=== PATIENT | female | born 1985 | race Asian ===

== ENCOUNTER 2022-08-26 16:31 | Outpatient (CLI) | payer OTHER, SELFPAY ==
[2022-08-26 17:39] LABS: Beta HCG Quantitative 2.95 mIU/ML
== END 2022-08-26 16:32 | disposition home or self-care (01) ==
LOC: ANHLAB 16:39
PROVIDERS: Visit Provider Obstetrics & Gynecology
DX: O20.0 Threatened abortion (principal)
CPT/HCPCS: 36415; 84702; 85461; 86850; 86900; 86901

== ENCOUNTER 2024-04-19 17:02 | Inpatient (IN) | payer OTHER, SELFPAY ==
--- OUTSIDE RECORDS SUMMARY | 2024-04-19 17:13 | XMS_ITS | Referral Summary ---
Author Organization [facility] Address [address] [place] [address] Care Team Providers Care Agriculture Specialist Name Role Phone Unavailable Primary Care Provider Unavailabl e Source Comments [facility] [employer],non-owned Affiliates and Associated Physician Practices is amultiple site organization consisting of ambulatory clinics and hospital sitesin [place], [place], [place] and [place]. This disclosure is being madepursuant to the Care Everywhere program and may not contain all information available regarding this patient. Last updated 17.[facility] [employer] Allergies No known active allergies Medications * Be aware that medications may not be up to date on this document. Alwaysverify current medications with the patient. Medication Sig Dispensed Refills Start Date End Date Status Vit-DSS-Fe Fum-FA ( vitamin with iron) tablet Take 1 (one) tablet by mouth once daily Active aspirin (Aspirin) 81 MG chew tablet Take 1 (one) tablet by mouth once daily Active levothyroxine (Synthroid) 75 MCG tablet Take 1 (one) tablet by mouth daily before breakfast Active Active Problems Problem Noted Date Diagnosed Date Abnormal genetic test during Overview (01/07/2024): NIPT showed increased risk for XYY Patient had genetic counseling. PPV for XYY at her age is 30-50% Patient plans for testing, declined diagnostic testing in at this time. 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 However, images are not diagnostic at this time. Discussed finding with patient. She would like to defer consultation with pediatric orthopaedics until there is either an ultrasound-confirmed diagnosis or a diagnosis. PLAN: Follow up US in 4 weeks, after this it would be unlikely to obtain optimal images of the feet with advancing gestational age. Estimated Date of Delivery Comme nts Yes 04/23/2024 Based on last me nstrual period of 07/18/2023 Social History Tobacco Use Types Packs/Day Years Used Date Smoking Tobacco: Never Smokeless Tobacco: Never Tobacco Cessation:Counseling Given: Not Answered Alcohol Use Standard Drinks/Week Comments Not Currently 0 (1 standard drink = 0.6 oz pur e alcohol) Estimated Date of Delivery Comme nts Yes 04/23/2024 Based on last me nstrual period of 07/18/2023 Sex and Gender Information Value Date Recorded Sex Assigned at Not on file Gender Identity Not on file Sexual Orientation Not on file Last Filed Vital Signs Vital Sign Reading Time Taken Comments Blood Pressure 131/70 01/07/2024 3:24 PM CDT Pulse 93 01/07/2024 3:24 PM CDT Temperature - - Respiratory Rate - - Oxygen Saturation - - Inhaled Oxygen Concentration - - Weight 83 kg (183 lb) 01/07/2024 3:24 PM CDT Height - - Body Mass Index - - Plan of Treatment Not on file
--- OUTSIDE RECORDS SUMMARY | 2024-04-19 17:13 | XMS_ITS | Continuity of Care Document ---
Author Organization [facility] [place] Address [address] [place] [address] Assessment No assessment recorded. Plan of Treatment Reminders Order Date Submit Date Provider Last Modified By Organization Details Last Modified Time Details Appointments INDUCTION 2024 05:00P Berto TRAN MD Not available Not available Not available Lab None recorded. Referral None recorded. Procedures None recorded. Surgeries None recorded. Imaging None recorded. Medication Orders None recorded. Patient TargetsNo targets recorded. Patient InstructionsNo instructions recorded. Reason for Referral None Reported. Results Created Date Observation Date Name Description Value Unit Range Abnormal Flag Note LastModifiedBy Organization Detail LastModifiedTime 10/15/19 24 10/15/2023 US, obste tric, nucha l trans lucen cy No observ ation record ed. [email or web address] [place] [address], [place], [address], 10/15/2023 16:47:21 10/15/19 24 10/15/2023 US, obste tric, nucha l trans lucen cy No observ ation record ed. [email or web address] [address], [place], [address], 10/15/2023 22:47:24 11/04/19 24 11/04/2023 US, obste tric No observ ation record ed. [facility] [address], [place], [address], 11/05/2023 12:26:33 11/04/19 24 11/04/2023 US, obste tric No observ ation record ed. [email or web address] [facility] [address] [place] [address], [address], 11/05/2023 12:25:06 11/04/19 24 11/04/2023 US, obste tric, follo w-up No observ ation record ed. [email or web address] [facility] [address] [place] [address], [address], 11/06/2023 15:07:04 12/05/19 24 12/05/2023 US, obste tric, follo w-up No observ ation record ed. [email or web address] [facility] [address], [address], 12/08/2023 11:16:33 12/05/19 24 12/05/2023 US, obste tric, follo w-up No observ ation record ed. [email or web address] [place] [address], [place], [address], 12/08/2023 10:21:50 12/08/19 24 11/04/2023 US, obste tric, follo w-up No observ ation record ed. [email or web address] [place] [address], [place], [address], 12/24/2023 12:00:13 01/07/20 24 01/07/2024 US, obste tric, follo w-up No observ ation record ed. [email or web address] [place] [address], [place], [address], 01/10/2024 18:05:02 01/07/20 24 01/07/2024 US, obste tric, follo w-up No observ ation record ed. [email or web address] [facility] [address], [address], 01/08/2024 10:03:09 10/25/20 24 01/07/2024 US, obste tric, follo w-up No observ ation record ed. [email or web address] [facility] [address], [place], [address], 01/09/2024 11:01:05 01/09/20 24 01/07/2024 US, obste tric, follo w-up No observ ation record ed. [email or web address] [facility] [address], [place], [address], 01/09/2024 11:01:10 02/10/20 24 02/10/2024 US, obste tric, follo w-up No observ ation record ed. [email or web address] [address], [place], [address], 02/16/2024 14:30:34 02/10/20 24 02/10/2024 US, obste tric, follo w-up No observ ation record ed. [email or web address] [place] [address], [place], [address], 02/10/2024 17:14:35 03/05/20 24 03/05/2024 imagi ng/di agnos tic resul t No observ ation record ed. [place] [id number] [facility] [address], [place], [address], 03/16/2024 10:58:14 03/05/20 24 03/05/2024 non-s tress test No observ ation record ed. [place] [id number] [facility] [address], [place], [address], 03/16/2024 11:44:17 03/15/20 24 03/15/2024 US, obste tric, follo w-up No observ ation record ed. [email or web address] [place] [address], [place], [address], 03/15/2024 17:25:22 03/15/20 24 03/15/2024 US, obste tric, follo w-up No observ ation record ed. [email or web address] [address], [place], [address], 03/15/2024 21:49:06 03/15/20 24 03/15/2024 non-s tress test No observ ation record ed. [email or web address] [place] [address], [place], [address], 03/15/2024 21:27:37 03/23/19 25 03/15/2024 non-s tress test No observ ation record ed. [email or web address] [place] [address], [place], [address], 03/23/2024 11:31:21 03/24/19 25 03/24/2024 US, obste tric, bioph ysica l profi le No observ ation record ed. [email or web address] [place] [address], [place], [address], 03/24/2024 17:53:30 03/25/19 25 03/24/2024 US, obste tric, bioph ysica l profi le No observ ation record ed. [email or web address] [address], [place], [address], 03/25/2024 16:18:01 03/26/19 25 03/24/2024 non-s tress test No observ ation record ed. [email or web address] [place] [address], [place], [address], 03/26/2024 17:21:36 03/26/19 25 03/24/2024 non-s tress test No observ ation record ed. [email or web address] Not Available 03/26 17:25:25 03/30/19 25 03/30/2024 US, obste tric, bioph ysica l profi le + non-s tress test No observ ation record ed. [email or web address] [place] [address], [place], [address], 03/30/2024 18:17:31 03/30/19 25 03/30/2024 US, obste tric, bioph ysica l profi le + non-s tress test No observ ation record ed. [email or web address] [address], [place], [address], 03/30/2024 22:41:49 03/30/19 25 03/30/2024 non-s tress test No observ ation record ed. [email or web address] [place] [address], [place], [address], 03/30/2024 17:49:15 04/06/19 25 04/06/2024 US, obste tric, bioph ysica l profi le + non-s tress test No observ ation record ed. [email or web address] [place] [address], [place], [address], 04/06/2024 17:43:05 04/06/19 25 04/06/2024 US, obste tric, follo w-up No observ ation record ed. [address], [place], [address], 04/07/2024 09:23:28 04/06/19 25 04/06/2024 non-s tress test No observ ation record ed. [email or web address] [place] [address], [place], [address], 04/06/2024 17:46:49 04/13/19 25 04/13/2024 US, obste tric, follo w-up No observ ation record ed. [email or web address] [place] [address], [place], [address], 04/13/2024 17:30:39 04/13/1904/13/2024 US, obste tric, follo w-up No observ ation record ed. [email or web address] [address], [place], [address], 04/14/2024 23:16:54 04/13/1904/13/2024 non-s tress test No observ ation record ed. [email or web address] [place] [address], [place], [address], 04/13/2024 17:04:27 Result Notes None recorded. Problems Name Problem SNOMED Code Status Onset Date Resolution Date Notes Provider Name and Address Organization Details Recorded Time 89083698 Active 2023 Alicia montez, [facility] 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 4 16:27:31 Hypothyro idism 25988283 Active Currently on 75mcg Maureen montez, [facility] 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 17:01:25 Problem Notes None recorded. Procedures Surgical History Date Name Laterality Status Provider Name and Address Organization Details Recorded Time 10/03/19 24 Date of Last Pap Smear completed [facility] 10/03/2023 12:52:26 04/17/19 24 intrauterine artificial insemination completed [facility] 10/03/2023 12:54:23 03/17/19 08 operation on oral cavity completed [facility] 10/03/2023 12:54:57 Imaging Results None recorded. Procedure Notes None recorded. Medical Equipment None Reported. Allergies No known drug allergies Medications Name Sig Start Date Stop Date Status Note LastModified by Organization Details LastModified Time Lantus U-100 Insulin 100 unit/mL subcutaneou s solution Inject 5 units every day by subcutane ous route at bedtime, for until delivery. 2023 active Not Available Not Available Not Avai lable levothyroxi ne 25 mcg tablet TAKE 1 TABLET BY MOUTH ONCE DAILY DIRECTED 09/18 completed Not Available Not Available Not Available levothyroxi ne 75 mcg tablet Take 1 tablet every day by oral route. active Not Available Not Available No t Available levothyroxi ne 50 mcg tablet TAKE 1 TABLET BY MOUTH ONCE DAILY DIRECTED 09/18 completed Not Available Not Available Not Available progesteron e micronized 200 mg capsule TAKE 1 CAPSULE BY MOUTH TWO TIMES DAILY WHEN INSTRUCTE D 10/02 completed Not Available Not Available Not Available letrozole 2.5 mg tablet TAKE 2 TABLETS BY MOUTH ONCE DAILY DIRECTED. DO NOT START UNTIL INSTRUCTE D active Not Available Not Available No t Available Ovidrel 250 mcg/0.5 mL subcutaneou s syringe active Not Available Not Available No t Available Levothroid active Not Available Not Av ailable Not Available active Not Available Not Avai lable Not Available Baby Aspirin active Not Available Not Available Not Available insulin syringe U-100 with needle 0.3 mL 31 gauge x 15/64 active Not Available Not Available Not Available OneTouch Delica Plus Lancet 33 gauge active Not Available Not Available Not Available Vitals None Recorded Social History Question Answer Notes LastModified by Organizat ion Details LastModified Time Tobacco Smoking Status Never Smoker Nayely montez [facility] 05/18/2022 12:25:52 Do You Have An Advance Directive? No Information n ot available 04/13/2021 What Is Your Level Of Alcohol Consumption? None Information not available 04/13/2021 If You Are , What Was Your Level Of Alcohol Consumption Prior To ? Occasional Information not available 10/07/2023 Are You Blind Or Do You Have Difficulty Seeing? No Information n ot available 04/13/2021 What Is Your Level Of Caffeine Consumption? Occasional Information not available 04/13/2021 How Much Tobacco Do You Chew? None Information not available 04/13/2021 In The 14 Days Before Symptom Onset, Have You Had Close Contact With A Laboratory-confirm ed COVID-19 While That Case Was Ill? No Information n ot available 04/13/2021 In The 14 Days Before Symptom Onset, Have You Had Close Contact With A Person Who Is Under Investigation For COVID-19 While That Person Was Ill? No Information not available 04/13/2021 Have You Been To An Area Known To Be High Risk For COVID-19? No Information not available 04/13/2021 Are You Currently Employed? No [email or web address] Information not available 03/30/2024 Are You Deaf Or Do You Have Serious Difficulty Hearing? No Information not available 04/13/2021 What Type Of Diet Are You Following? REGULAR Information n ot available 04/13/2021 What Is The Highest Grade Or Level Of School You Have Completed Or The Highest Degree You Have Received? [id number] Information not available 04/13/2021 What Is Your Occupation? Student Information not available 04/13/2021 Are There Any Guns Present In Your Home? No Information not available 04/13/2021 Do You Use Protection During Sex? No Information not available 04/13/2021 Do You Use Your Seat Belt Or Car Seat Routinely? Yes Information not available 04/13/2021 Are You Sexually Active? Yes [email or web address] Information not available 03/30/2024 Do You Have Smoke And Carbon Monoxide Detectors In Your Home? Yes Information not available 04/13/2021 How Much Tobacco Do You Smoke? No Information not available 04/13/2021 Do You Feel Stressed (tense, Restless, Nervous, Or Anxious, Or Unable To Sleep At Night)? [id number] Information not available 04/13/2021 Do You Use Any Illicit Or Recreational Drugs? No Information not available 04/13/2021 Do You Use Sunscreen Routinely? No Information not available 04/13/2021 Has Tobacco Cessation Counseling Been Provided? No [email or web address] Information not available 03/30/2024 Have You Used IV Drugs? No Information not available 04/13/2021 Do You Or Have You Ever Used Any Other Forms Of Tobacco Or Nicotine? No [email or web address] Information not available 03/30/2024 Sex: Unknown Functional Status Question Answer Note LastModified by Organizat ion Details LastModified Time Do you have difficulty walking or climbing stairs? No Information not available 05/18/2022 Are you able to walk? YESWOREST Information not available 04/13/2021 Are you able to care for yourself? Yes Information not available 05/18/2022 Do you have difficulty dressing or bathing? No Information not available 05/18/2022 What is your exercise level? Occasional Information not available 04/13/2021 Mental Status None recorded. Family History Relationship Description Onset Age of this Age Resolved Age Notes LastModified by Organization Details LastModified Time Father Hypertensive disorder Not available 2021 13:03:17 Father Myocardial infarction Not available 04/13 13:03:17 Father Heart disease Not available 2021 13:03:17 Medical History Condition Response Allergies (Food, seasonal, environmental ) N Other N Drug/Latex Allergies/Reactions N Blood Transfusion N Breast Cancer N Dermatologic Disorders N Lung Disease N Defects or Inherited Disease N Breast Problem N Gestational Diabetes N Hematologic disorders N Anesthesia Complications N History of STI N Deep Vein Thrombosis N Polycystic ovary syndrome N Anxiety Disorder N Autoimmune disease N Arthritis N Polyps N Infertility Y Acid Reflux (GERD) N History of abnormal pap N Cancer N Varicosities N Stroke N Neurologic/Epilepsy N Endometriosis N High Cholesterol N Fibromyalgia N Headaches N Kidney Disease N Heart Problems N Thyroid Problems Y Kidney or Bladder Problems N GI Problems N Eating Disorder N Anemia N Art (IVF or FET) Y Psychiatric Illness N Ovarian Cancer N Diabetes N Pulmonary (TB, Asthma) N Hepatitis/Liver Disease N No Past Medical History Y Eczema N Urinary Tract Infection N Abuse/Domestic Violence N Asthma N Trauma/Violence N Depression/ depression N Heart Disease N Pre-Eclampsia N Hypertension N Osteoporosis N Thrombophilias N Gynecological History Statement/Question Response Abnormal Pap N Date of Last Mammogram Flow Moderate Date of LMP 07/18/2023 N On BCP's at Conception? N STIs/STDs N Was last menstrual period normal Y HPV Vaccine N Duration of Flow (days) 7 Current Control Method Date of control 10/15/2017 Are cycles usually normal N Frequency of Cycle (Q days) 28 Sexually Active? Y None Menses Monthly N Date of DEXA bone scan Age of first menstrual cycle 14 Date of Last Pap Smear 10/03/2023 Sexual Problems? N LMP Approximate N Obstetrics History GPAL:G 3 P 0 0 2 0 Type Value Spontaneous 2 Living 0 Total 3 Past Encounters Encounter ID Performer Location Encounter Start Date Encounter Closed Date Diagnosis/Indication Diagnosis SNOMED-CT Code Diagnosis ICD10 Code Diagnosis Note [id number] Lizzy Woods [place] [address],[facility] [place] [address] 03/24/2024 15:28:11 03/27/2024 09:18:34 Gestational diabetes mellitus 38768533 O24.414 [id number] Makenzie Milan brandon [place] [address],[facility] [place] [address] 03/24/2024 15:29:31 03/24/2024 17:52:47 74410971 Z33.1 Gestationa l diabetes mellitus 47712223 O24.419 [id number] AYDIN TRAN MD [place] [address],[facility] [address] 03/24/2024 15:36:18 03/26/2024 01:41:11 Gestational diabetes mellitus class A2 88289444 O24.414 Gestation period, 35 weeks 51771089 Z3A.35 Advanced m aternal age 708179628 O09.522 Hypothyroidism 14789113 E03.9 - TSH stable, will continue synthroid 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, declined amniocente sis [id number] Ally [facility] [address],[place] [address] 03/30/2024 15:55:13 03/30/2024 16:46:31 Gestational diabetes mellitus 18791569 O24.414 O09.523 Z3A.36 [id number] [facility] [address],[place] [address] 03/30/2024 15:55:33 03/31/2024 10:45:11 Gestational diabetes mellitus 75066532 O24.419 [id number] AYDIN TRAN MD [place] [address],[place] [address] 03/30/2024 15:55:53 03/30/2024 17:41:49 Gestational diabetes mellitus class A2 97855467 O24.414 - fasting well controlled on 7u lantus qHS; two PP elevated- continue current regimen Hypothyroidism 59247394 E03.9 - TSH stable, will continue synthroid Anomaly of sex chromosome 22185930 Q99.8 - 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 [address],[place] [address] 04/06/2024 15:56:54 04/06/2024 16:49:31 Gestational diabetes mellitus 45844127 O24.414 O09.523 Z3A.37 [id number] [facility] [address],[place] [address] 04/06/2024 15:57:18 04/07/2024 10:24:20 Gestational diabetes mellitus 75343230 O24.419 [id number] AYDIN TRAN MD [place] [address],[place] [address] 04/06/2024 15:57:42 04/06/2024 17:41:19 Anomaly of sex chromosome 69168482 Q99.8 - XXY on NIPT, declined amniocente sis Gestationa l diabetes mellitus class A2 63275888 O24.414 - fasting well controlled on 7u lantus qHS; two PP elevated- continue current regimen Advanced m aternal age 270351493 O09.522 Hypothyroidism 55656860 E03.9 - TSH stable, will continue synthroid Gestation period, 37 weeks 89231685 Z3A.37 [id number] Ally Simpson [place] [address],[place] [address] 04/13/2024 15:55:48 04/13/2024 16:38:05 Gestational diabetes mellitus 43258618 O24.414 O09.523 O99.283 Z3A.38 [id number] Chastity Shetty [place] [address],[place] [address] 04/13/2024 15:57:50 04/13/2024 17:06:50 Gestational diabetes mellitus 73740169 O24.419 [id number] AYDIN TRAN MD [place] [address],[place] [address] 04/13/2024 15:58:38 04/13/2024 18:03:46 Hypothyroidism in 007194815 E03.9 - TSH wnl Anomaly of sex chromosome 22420740 Q99.8 - XXY on NIPT, declined amniocente sis Gestationa l diabetes mellitus class A2 89119108 O24.414 - continue current regimen Advanced m aternal age 063972298 O09.522 Gestation period, 38 weeks 48010993 Z3A.38 [id number] AYDIN TRAN MD [place] [address],[place] [address] 04/19/2024 10:35:25 04/19/2024 16:25:19 Health Concerns Section Related Observation LastModified by Organization Detai ls LastModified Time None Recorded Concern Status LastModified by Organization Details LastModified Time None Recorded Payers Encounter Date Sequence Insurance Name Policy Number Policy Linda Covered Member ID Linda Member ID Guarantor Name 04/19/2024 1 [facility] [id number] Dayne Doan [id number] Dayne Doan OBGyn Episode Ob Episode Information Episode Created Date Number of Fetuses Patient Bloodtype Patient rh Status Prepregnancy Weight lbs Domestic Partner Domestic Partner Phone Father Name Notch 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 Operator Status 10/15/19 24 1 O Positive 164 OPEN Fetus Data First Name Last Name Admitted to NICU Weight (g) Sex Living Outcome Pediatric Complications Fetus ID Race Codes Race Delivery Type [id number] Problems Problem Notes 11/04/23 8:15am u/s and raul ic counseling, 01/06 230p u/s only, 02/02/24 730a u/s only Problem Name Start Date End Date Resolution Snomed Code Not e Gestational diabetes mellitus 02/02/2024 46726822 BS QID, growth u/ Lantus 7u @ night , antental testing scheduled to start 34wks pt decline to start week of 03/01 Anomaly of sex chromosome 97483966 XYY on NIPT, MF M referral sent Advanced maternal age 043603540 bASA Hypothyroidism 46925343 Curre ntly on 75mcg Frank Calculation Initial Frank Date Initial Exam Date Initial Exam Provider Initial Ultrasound Date Last Menstrual Period Date Ultra Sound Weeks Gestation 04/23/2024 10/15/2023 10/03/2023 07/18/2023 11 Eighteen To Twenty Week Frank Update Ultra Sound Date Fundal Height At Umbil Quickening Date Ultra Sound Latest Weeks Gestation Final Frank Confirmed By Final Frank Confirmed Date Final Frank Date Ultra Sound Latest Days Gestation 0 10/15/2023 04/23/19 25 0 Pre-adrianne Flowsheet Flowsheet Date 10/15/2023 Perdue Score Blood Edema Fundus Height Fundus Units Glucose Ketones Leukocytes Nitrite Labor Signs Protein Cervic Dilation Cervic Effacement Cervic Station Type Weight in lbs Pre/Post Dialysis Refused Weight 165.636046399301 BP Diastolic BP Location Tested BP Systolic BP Type 72 108 Fetus Heart Rate Present A 170 Fetus Movement Comments Patient presents to [facility] care. Her has been thus far uncomplicated. She does have a history of hemorrhoids and constipation which have been improved. NT/NB wnl today. 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 Recommend diagnostic testing with [facility] vs amniocentesis, referral to [facility] sent. Patient voices understanding, appropriately tearful. Other new OB labs wnl aside from previously noted elevated TSH. Wrong Hep B lab sent in error, will repeat today with TSH. RTC 4 weeks for routine care. Flowsheet Date 11/14/2023 Perdue Score Blood Edema Fundus Height Fundus Units Glucose Ketones Leukocytes Nitrite Labor Signs Protein Cervic Dilation Cervic Effacement Cervic Station Type Weight in lbs Pre/Post Dialysis Refused Weight 167.151337794005 BP Diastolic BP Location Tested BP Systolic BP Type 84 123 Fetus Heart Rate Present A 150 Fetus Movement Comments Doing well, no cramping or b leeding. No movement yet. Saw [facility] for concern for Holman syndrome, declines further diagnostic testing in . Will plan for cord blood collection at delivery. Anatomy US at [facility]. Taking bASA for AMA. TSH wnl, continue current levothyroxine. Discussed childbirth and classes at [facility]. RTC 4 weeks. Flowsheet Date 12/19/2023 Perdue Score Blood Edema Fundus Height Fundus Units Glucose Ketones Leukocytes Nitrite Labor Signs Protein Cervic Dilation Cervic Effacement Cervic Station neg none none trace Type Weight in lbs Pre/Post Dialysis Refused 178.739007726824 BP Diastolic BP Location Tested BP Systolic BP Type 80 L arm 125 sitting Fetus Heart Rate Present A 145 Fetus Movement A Yes Comments Starting to feel movem ent. No cramping or bleeding. Had anatomy US with [facility], all normal aside from suboptimal view of right foot. Repeat scheduled 01/06. Overall feeling well. RTC 4 weeks. Flowsheet Date 01/26/2024 Perdue Score Blood Edema Fundus Height Fundus Units Glucose Ketones Leukocytes Nitrite Labor Signs Protein Cervic Dilation Cervic Effacement Cervic Station neg none none trace Type Weight in lbs Pre/Post Dialysis Refused 184.771732672927 BP Diastolic BP Location Tested BP Systolic BP Type 81 L arm 123 sitting Fetus Heart Rate Present A 140 Fetus Movement A Yes Comments Patient c/o of some swelling in feet. Good movement. No cramping or bleeding. Still not able to clear right foot for clubfoot, would like to wait until after delivery to know for sure. GCT and labs today. Discussed tdap vaccine. RTC 2 weeks. Flowsheet Date 02/10/2024 Perdue Score Blood Edema Fundus Height Fundus Units Glucose Ketones Leukocytes Nitrite Labor Signs Protein Cervic Dilation Cervic Effacement Cervic Station Type Weight in lbs Pre/Post Dialysis Refused BP Diastolic BP Location Tested BP Systolic BP Type Fetus Heart Rate Present Fetus Movement Comments Flowsheet Date 02/10/2024 Perdue Score Blood Edema Fundus Height Fundus Units Glucose Ketones Leukocytes Nitrite Labor Signs Protein Cervic Dilation Cervic Effacement Cervic Station neg none none trace Type Weight in lbs Pre/Post Dialysis Refused 192.802329201803 BP Diastolic BP Location Tested BP Systolic BP Type 78 L arm 130 sitting Fetus Heart Rate Present Fetus Movement A Yes Comments Patient c/o of swelling. Goo d movement. NO cramping or bleeding. EFW 48%, vertex, normal fluid. Discussed GDM diagnosis, sugars overall elevated; discussed importance of diet and will have RN check in with patient next week. May need to start insulin. RTC 2 weeks. Continue serial growth US. Flowsheet Date 02/27/2024 Perdue Score Blood Edema Fundus Height Fundus Units Glucose Ketones Leukocytes Nitrite Labor Signs Protein Cervic Dilation Cervic Effacement Cervic Station Type Weight in lbs Pre/Post Dialysis Refused 190.798006974993 BP Diastolic BP Location Tested BP Systolic BP Type 71 110 Fetus Heart Rate Present A 135 Fetus Movement A Yes Comments Patient states that is havin g discharge and swelling. Good movement. No cramping or bleeding. Patient reports sugars still elevated, will check on friday for log. discussed possibly starting insulin if persistently elevated. Discussed rsv vaccine and preadmission. RTC 2 weeks. Flowsheet Date 03/15/2024 Perdue Score Blood Edema Fundus Height Fundus Units Glucose Ketones Leukocytes Nitrite Labor Signs Protein Cervic Dilation Cervic Effacement Cervic Station Type Weight in lbs Pre/Post Dialysis Refused Weight 192.215436778663 BP Diastolic BP Location Tested BP Systolic BP Type 79 117 Fetus Heart Rate Present Fetus Movement Comments Flowsheet Date 03/15/2024 Perdue Score Blood Edema Fundus Height Fundus Units Glucose Ketones Leukocytes Nitrite Labor Signs Protein Cervic Dilation Cervic Effacement Cervic Station Type Weight in lbs Pre/Post Dialysis Refused BP Diastolic BP Location Tested BP Systolic BP Type Fetus Heart Rate Present Fetus Movement Comments Flowsheet Date 03/15/2024 Perdue Score Blood Edema Fundus Height Fundus Units Glucose Ketones Leukocytes Nitrite Labor Signs Protein Cervic Dilation Cervic Effacement Cervic Station trace Type Weight in lbs Pre/Post Dialysis Refused 192.463087516906 BP Diastolic BP Location Tested BP Systolic BP Type 79 117 Fetus Heart Rate Present A 144 Fetus Movement A Yes Comments Patient states that is havin g some swelling. Reassuring testing, reasonable blood sugar control, has some high numbers after dinner. On insulin, would not change the insulin, strongly encouraged the patient to eat fewer carbohydrates at dinner. Flowsheet Date 03/24/2024 Perdue Score Blood Edema Fundus Height Fundus Units Glucose Ketones Leukocytes Nitrite Labor Signs Protein Cervic Dilation Cervic Effacement Cervic Station Type Weight in lbs Pre/Post Dialysis Refused Weight 196.634026822432 BP Diastolic BP Location Tested BP Systolic BP Type 78 115 Fetus Heart Rate Present Fetus Movement Comments Flowsheet Date 03/24/2024 Perdue Score Blood Edema Fundus Height Fundus Units Glucose Ketones Leukocytes Nitrite Labor Signs Protein Cervic Dilation Cervic Effacement Cervic Station Type Weight in lbs Pre/Post Dialysis Refused BP Diastolic BP Location Tested BP Systolic BP Type Fetus Heart Rate Present Fetus Movement Comments Flowsheet Date 03/24/2024 Perdue Score Blood Edema Fundus Height Fundus Units Glucose Ketones Leukocytes Nitrite Labor Signs Protein Cervic Dilation Cervic Effacement Cervic Station neg trace Type Weight in lbs Pre/Post Dialysis Refused Weight 196.791312398756 BP Diastolic BP Location Tested BP Systolic BP Type 78 L arm 115 sitting Fetus Heart Rate Present A 145 Fetus Movement A Yes Comments Good movement. No cram ping or bleeding. Fastings 50% elevated, will increase to 7u lantus at night. Discussed induction in 39th week due to insulin requirement. Patient voices understanding, will schedule next visit. GBS collected today. BPP 8/10, off for breathing. Labor precautions discussed. RTC 1 week. Flowsheet Date 03/30/2024 Perdue Score Blood Edema Fundus Height Fundus Units Glucose Ketones Leukocytes Nitrite Labor Signs Protein Cervic Dilation Cervic Effacement Cervic Station Type Weight in lbs Pre/Post Dialysis Refused BP Diastolic BP Location Tested BP Systolic BP Type Fetus Heart Rate Present Fetus Movement Comments Flowsheet Date 03/30/2024 Perdue Score Blood Edema Fundus Height Fundus Units Glucose Ketones Leukocytes Nitrite Labor Signs Protein Cervic Dilation Cervic Effacement Cervic Station Type Weight in lbs Pre/Post Dialysis Refused BP Diastolic BP Location Tested BP Systolic BP Type Fetus Heart Rate Present Fetus Movement Comments Flowsheet Date 03/30/2024 Perdue Score Blood Edema Fundus Height Fundus Units Glucose Ketones Leukocytes Nitrite Labor Signs Protein Cervic Dilation Cervic Effacement Cervic Station neg trace Type Weight in lbs Pre/Post Dialysis Refused Weight 197.610350778562 BP Diastolic BP Location Tested BP Systolic BP Type 79 L arm 121 sitting Fetus Heart Rate Present A 140 Fetus Movement A Yes Comments Good movement. No cram ping or bleeding. BPP 10/10. Fastings wnl on 7u lantus, two PP values to review, both elevated. GBS positive, discussed abx during labor. Will schedule MIL 2/3 evening. Labor precautions reviewed. RTC 1 week. Flowsheet Date 04/06/2024 Perdue Score Blood Edema Fundus Height Fundus Units Glucose Ketones Leukocytes Nitrite Labor Signs Protein Cervic Dilation Cervic Effacement Cervic Station Type Weight in lbs Pre/Post Dialysis Refused BP Diastolic BP Location Tested BP Systolic BP Type Fetus Heart Rate Present Fetus Movement Comments Flowsheet Date 04/06/2024 Perdue Score Blood Edema Fundus Height Fundus Units Glucose Ketones Leukocytes Nitrite Labor Signs Protein Cervic Dilation Cervic Effacement Cervic Station Type Weight in lbs Pre/Post Dialysis Refused BP Diastolic BP Location Tested BP Systolic BP Type Fetus Heart Rate Present Fetus Movement Comments Flowsheet Date 04/06/2024 Perdue Score Blood Edema Fundus Height Fundus Units Glucose Ketones Leukocytes Nitrite Labor Signs Protein Cervic Dilation Cervic Effacement Cervic Station neg trace Type Weight in lbs Pre/Post Dialysis Refused Weight 199.588953757862 BP Diastolic BP Location Tested BP Systolic BP Type 73 L arm 111 sitting Fetus Heart Rate Present A 135 Fetus Movement A Yes Comments Patient c/o of swelling in l egs and hands. Good movement. No cramping or bleeding. BPP 10/10. MIL Scheduled 2/3 evening. GLucose wnl per patient. Declines circumcision. RTC 1 week. Flowsheet Date 04/13/2024 Perdue Score Blood Edema Fundus Height Fundus Units Glucose Ketones Leukocytes Nitrite Labor Signs Protein Cervic Dilation Cervic Effacement Cervic Station Type Weight in lbs Pre/Post Dialysis Refused BP Diastolic BP Location Tested BP Systolic BP Type Fetus Heart Rate Present Fetus Movement Comments Flowsheet Date 04/13/2024 Perdue Score Blood Edema Fundus Height Fundus Units Glucose Ketones Leukocytes Nitrite Labor Signs Protein Cervic Dilation Cervic Effacement Cervic Station Type Weight in lbs Pre/Post Dialysis Refused BP Diastolic BP Location Tested BP Systolic BP Type Fetus Heart Rate Present Fetus Movement Comments Flowsheet Date 04/13/2024 Perdue Score Blood Edema Fundus Height Fundus Units Glucose Ketones Leukocytes Nitrite Labor Signs Protein Cervic Dilation Cervic Effacement Cervic Station neg trace Type Weight in lbs Pre/Post Dialysis Refused 196.345170380924 BP Diastolic BP Location Tested BP Systolic BP Type 77 L arm 118 sitting Fetus Heart Rate Present A Present Fetus Movement A Yes Comments Patient c/o swelling in hand s and feet. Good movement. BPP 12/24. MIL scheduled for Friday. Glucose wnl. Discussed induction plan. Labor precautions reviewed. Flowsheet Date 04/19/2024 Perdue Score Blood Edema Fundus Height Fundus Units Glucose Ketones Leukocytes Nitrite Labor Signs Protein Cervic Dilation Cervic Effacement Cervic Station Type Weight in lbs Pre/Post Dialysis Refused BP Diastolic BP Location Tested BP Systolic BP Type Fetus Heart Rate Present Fetus Movement Comments Menstrual History Last Menstrual Date Menses Monthly On Bcp Conception Prior Menses Frequency Hcg Plus Date Menarche Onset Age 0507/18/2023 Genetic Screening And Infection History Question Response Note Mental Retardation/Autism false Patient's Age Will Be 35 Years Or Older At Estim ated Date of Delivery true Thalassemia (Setswana, Dominican, Mediterranean, Or Background): MCV < 80 false Neural Tube Defect (Meningomyelocele, Spina Bifi da, Or Anencephaly) false Congenital Heart Defect false Down Syndrome false Scar-Sachs (eg, Christian, Cajun, Spanish-Big Horn) f alse Carmina Disease false Sickle Cell Disease Or Trait () false Hemophilia Or Other Blood Disorders false Muscular Dystrophy false Cystic Fibrosis false Gaines's Chorea false Intellectual Disability/Autism false If Yes, Was Person Tested For Fragile X? false Other Inherited Genetic Or Chromosomal Disorder false Maternal Metabolic Disorder (eg, Type 1 Diabetes , PKU) false Patient Or Baby's Father Had A Child With Defects Not Listed Above false Recurrent Loss, Or A Stillbirth false Medications (including Suppl ements, Vitamins, Herbs, OTC Drugs), Illicit/Recreational Drugs, Alcohol false If Yes, Agent(s) And Strength/Dosage false Any Other Genetic History false Live With Someone With TB Or Exposed To TB false Patient Or Partner Has History Of Genital Herpes false Rash Or Viral Illness Since Last Menstrual Perio d false History Of STD, Gonorrhea, Chlamydia, HPV, Syphi lis false Other Infection History false History of HIV false History of Hepatitis false Prior GBS-infected child false Hemoglobinopathy Or Carrier false Other Structural Defect false Recent Travel History Outside of Country false Delivery Information Delivery Date Delivery Type Labor Anesthesia Weeks Gestation Incision Type Labor Labor Length Hrs Delivered By Post Complications Tubal Sterilization Discharge Date Comments Discharge Information Feeding Method Contraceptive Method Maternal HG B and HCT Levels
--- OUTSIDE RECORDS SUMMARY | 2024-04-19 17:13 | XMS_ITS | Patient Health Summary ---
Author Organization [facility] Address [address] [place] [address] Care Team Providers Care Financial Services Education Consultant Name Role Phone Unavailable Primary Care Provider Unavailabl e Note from [facility],non-owned Affiliates and Associated Physician Practices is amultiple site organization consisting of ambulatory clinics and hospital sitesin [place], [place], [place] and [place]. This disclosure is being madepursuant to the Care Everywhere program and may not contain all information available regarding this patient. Last updated 17.[facility] Allergies No known active allergies Medications * Be aware that medications may not be up to date on this document. Alwaysverify current medications with the patient. * Vit-DSS-Fe Fum-FA ( vitamin with iron) tablet Take 1 (one) tablet by mouth once daily * aspirin (Aspirin) 81 MG chew tablet Take 1 (one) tablet by mouth once daily * levothyroxine (Synthroid) 75 MCG tablet Take 1 (one) tablet by mouth daily before breakfast Active Problems Problem Noted Date Diagnosed Date Abnormal genetic test during Suspected anomaly, antepartum 01/07/2024 Social History Tobacco Use Types Packs/Day Years [...] - - Body Mass Index - - Procedures * SONOGRAM - COMPLETE(Performed 01/07/2024) Performed for Multigravida of advanced maternal age in second trimester (HCC), 24 weeks gestation of (HCC), XYY chromosome anomaly (HCC) * SONOGRAM - COMPLETE(Performed 12/05/2023) Performed for XYY chromosome anomaly (HCC), 19 weeks gestation of (HCC) * SONOGRAM - COMPLETE(Performed 11/04/2023) Performed for XYY chromosome anomaly (HCC), Encounter for follow-up ultrasound of anatomy ([facility]) Results * SONOGRAM - COMPLETE (01/07/2024 2:28 PM CDT) Only the most recent of3 resultswithin the time period is included. Anatomical Region Laterality Modality Other 01/07/2024 2:28 PM CDT Narrative 01/07/2024 3:48 PM CDT ? [facility] ?[facility] ?PHONE: ??FAX: Pat. Name: ?MAUDE, JUNE Pat. No: ?[id number] Study Date: ?? 01/07/2024 ??2:28pm , Age: ? 1985, 38 Pregnancies: ?? 3, Para 0020 Height: ? 64 in Weight: ? 165 lb LMP: ?07/18/2023 GA by LMP: ?24w5d GA by Base: ?? 24w5d ?? SOREN: 04/23/2024 GA by US: ? 24w3d ?? SOREN: 04/25/2024 GA Selected: ??24w5d (LMP) SOREN: ?04/23/2024 Referring MD: Juma Rouse MD Advanced Manager: ??Joceline Amaya RDMS CPT4: ? 69119 BMI: ?28.32 Hist/Ind: ? Incomplete Anatomy Screen ?NIPT +XYY ?Declined Amniocentesis/S/P Genetic Counseling ?AMA: Low-Risk for Trisomies MEASUREMENTS & AGE ? GROWTH EVALUATION Measurement ??GA ? Range ? Srce %for GA Ratios ----- ---- ------- BPD ??6.0 cm 24w3d ([id number]) Hadl BPD 30% FL/BPD 0.73 (0.71 - 0.87) HC ??22.7 cm 24w5d (97m4o-75n4p) Hadl HC ??30% FL/AC ??0.22 (0.20 - 0.24) AC ??19.5 cm 24w2d (05g5x-81e2w) Hadl AC ??26% HC/AC ??1.16 (1.02 - 1.21) FL ?? 4.4 cm 24w2d (50r5n-86v1a) Hadl FL ??26% CI ? 0.73 (0.70 - 0.86) GA for sonogram 24w3d (84m7c-80s9w) ?? Weight Estimate: based on (BPD,HC,AC,FL) Avg ?Weight: 684 gm (584-784gm) Hadloc ? : 1lbs, 8oz ? Normal: 751 gm (563-938gm) Hadloc ? Wt% ? 25% for 24w5d Heart Rate: 144 bpm Amniotic Fluid Index: 04.6cm (Deepest Pocket) PROCEDURE, TECHNIQUE Technique: transabdominal EVAL, PLACENTA Presentation: cephalic Placenta: anterior Heart Rate: 144 bpm Amniotic Fluid Volume: normal Anatomy!Normal!Abnormal!Suboptimal!Prev. Seen!Comments Cranium ?! ?! ?! ?! ? x ?! Mdl (CSP/Thal! ?! ?! ?! ? x ?! Ventricles ?? ! ?! ?! ?! ? x ?! Choroid Plexu! ?! ?! ?! ? x ?! Cerebellum ?? ! ?! ?! ?! ? x ?! Cisterna M. ??! ?! ?! ?! ? x ?! Nuchal Fold ??! ?! ?! ?! ? x ?! Orbits ? ! ?! ?! ?! ? x ?! Profile ?! ?! ?! ?! ? x ?! Nasal Bone ?? ! ?! ?! ?! ? x ?! Lip ?! ?! ?! ?! ? x ?! Spine ?! ?! ?! ?! ? x ?! Lungs ?! ?! ?! ?! ? x ?! 4 Chamber Hea! ?! ?! ?! ? x ?! LVOT ? ! ?! ?! ?! ? x ?! RVOT ? ! ?! ?! ?! ? x ?! 3 Vessel View! ?! ?! ?! ? x ?! 3 Vessel Trac! ?! ?! ?! ? x ?! Cross-over ?? ! ?! ?! ?! ? x ?! Ductal Arch ??! ?! ?! ?! ? x ?! Aortic Arch ??! ?! ?! ?! ? x ?! Caval View ?? ! ?! ?! ?! ? x ?! Situs ?! ?! ?! ?! ? x ?! Diaphragm ?! ?! ?! ?! ? x ?! Stomach ?! ?! ?! ?! ? x ?! Bowel ?! ?! ?! ?! ? x ?! Kidneys ?! ?! ?! ?! ? x ?! Bladder ?! ?! ?! ?! ? x ?! 3 Vessel Cord! ?! ?! ?! ? x ?! Cord In! ?! ?! ?! ? x ?! Upper Extremi! ?! ?! ?! ? x ?! Hands ?! ?! ?! ?! ? x ?! Lower Extremi! ?! ?! ? x ?! ?!unremarkable ?left, suboptimal ?right Feet ? ! ?! ?! ? x ?! ?!unremarkable ?left, suboptimal ?right External Snehal! ?! ?! ?! ? x ?! Placental Cor! ?! ?! ?! ? x ?! Maternal Adne! ?! ?! ?! ? x ?! CLINICAL SUMMARY A single fetus is seen in cephalic presentation. ??The measurements today are consistent with appropriate interval growth. ??The SOREN is based on her LMP and a prior ultrasound examination. ??The amniotic fluid volume is within normal limits. ?? There remains a concern for R clubbed foot. Some images appear to show a normal relationship of the lower leg and foot, but others are concerning for a clubbed foot. Unfortunately, none of the images are diagnostic at this time. Discussed suspicion with patient, she would prefer to wait for either a definitive ultrasound diagnosis or confirmation after before meeting with pediatric orthopaedics. IMPRESSION: Single, live, intrauterine at 24w5d ?? size is consistent with established SOREN ?? Fetus measures 24w3d, EFW 25%, AC 26%. Amniotic fluid volume: within normal limits ?? No major malformations were seen within the limitations of ultrasound. ?? Possible clubbed R foot seen, will need follow up to determine if true diagnosis. RECOMMEND: Ultrasound in 4 weeks for growth assessment and RLE evaluation Thank you for allowing us the opportunity to care for your patient. ?? Tacho Todd MD <Electronic Signature> ??01/07/2024 03:48pm R Chinmay Hayes MD [facility] ORDERABLES
--- OUTSIDE RECORDS SUMMARY | 2024-04-19 17:13 | XMS_ITS | Clinical Summary ---
Author Organization [facility] Address [address] [place] [address]. [place] [address] [place] [address] Care Team Providers Care Solar Installation Crew Supervisor Name Role Phone Pool Cali MD Primary Care Provider [phone] Allergies No known active allergies Social History Tobacco Use Types Packs/Day Years Used Date Smoking Tobacco: Never Smokeless Tobacco: Never Alcohol Use Standard Drinks/Week Comments Not Currently 0 (1 standard drink = 0.6 oz pur e alcohol) Comments Yes Sex and Gender Information Value Date Recorded Sex Assigned at Not on file Legal Sex Female 3:01 PM [employer] Gender Identity Not on file Sexual Orientation Not on file Last Filed Vital Signs Vital Sign Reading Time Taken Comments Blood Pressure 137/88 04/26/2020 7:30 PM [employer] Pulse 92 04/26/2020 7:18 PM [employer] Temperature 36.7 ??C (98 ??F) 04/26/2020 3:12 PM [employer] Respiratory Rate 18 04/26/2020 7:30 PM [employer] Oxygen Saturation 98% 04/26/2020 7:30 PM [employer] Inhaled Oxygen Concentration - - Weight 77.1 kg (170 lb) 04/26/2020 3:12 PM [employer]OR Height 162.6 cm (5' 4 ) 04/26/2020 3:12 PM [employer] Body Mass Index 29.18 04/26/2020 3:12 PM [employer]OR Plan of Treatment Health Maintenance Due Date Last Done Comments Cervical Cancer Screening Pa p Smear (Age 30 to 64) Every 3 Years 1985 Annual Physical 06/30/1990 Hepatitis C 06/30/2005 DTaP, Tdap and Td Vaccines ( 1 - Tdap) 06/30/2006 Hepatitis B Vaccines (1 of 3 - 19+ 3-dose series) 06/30/2006 Cervical Cancer Screening Pa p with HPV Testing (Age 30 to 64) Every 5 Years 06/30/2017 Cervical Cancer Screening with HPV 06/30/2017 COVID-19 Vaccine ( - 2023-2 5 season) 2023 Influenza Adult (#1) 2023 RSV Immunization or 60+ Years (1 - 1-dose 75+ series) 06/30/2062 HPV Vaccines Aged Out No longer eligi ble based on patient's age to complete this topic Meningococcal B Vaccine Aged Out No l onger eligible based on patient's age to complete this topic Meningococcal Vaccine Aged Out No gris maura eligible based on patient's age to complete this topic Pneumococcal Vaccine: Pediat rics (0 to 5 Years) and At-Risk Patients (6 to 64 Years) Aged Out No longer eligible b ased on patient's age to complete this topic RSV Immunizations Under 20 Months Aged Out No longer eligible based on patient's age to complete this topic Insurance TAM Care Teams Solar Installation Crew Supervisor Relationship Specialty Start Date End Date Pool Cali MD [address] [place] [address] PCP - General OTOLARYNGOLOGY 04/26/20
--- OUTSIDE RECORDS SUMMARY | 2024-04-19 17:13 | XMS_ITS | Data Portability ---
Author Organization [facility] [place] Address [address] [place] [address] [place] [address] Assessment No assessment recorded. Plan of Treatment Reminders Order Date Submit Date Provider Last Modified By Organization Details Last Modified Time Details Appointments INDUCTION 2024 05:00P Berto TRAN MD Not available Not available Not available Lab None recorded. Referral None recorded. Procedures None recorded. Surgeries None recorded. Imaging US, obstetric , biophysic al profile + non-stres s test 2024 025 [email or web address], [address], [place], [address], 04/06/2024 20:36:37 non-stres s test [email or web address] [place], [address], [place], [address], 04/14/2024 06:59:08 US, obstetric , follow-up [email or web address] [facility] [address], [address], [place], [address], 04/14/2024 08:27:19 Medication Orders None recorded. Patient TargetsNo targets recorded. Patient InstructionsNo instructions recorded. Reason for Referral None Reported. Results Created Date Observation Date Name Description Value Unit Range Abnormal Flag Note LastModifiedBy Organization Detail LastModifiedTime 03/15/20 24 03/15/2024 US, obste tric, follo w-up No observ ation record ed. [email or web address] [place] [address], [place], [address], 03/15/2024 17:25:22 03/15/20 24 03/15/2024 US, obste tric, follo w-up No observ ation record ed. [email or web address] [address], [place], [address], 03/15/2024 21:49:06 03/15/20 24 03/15/2024 non-s tress test No observ ation record ed. [email or web address] [place] [address], [place], [address], 03/15/2024 21:27:37 03/23/19 25 03/15/2024 non-s tress test No observ ation record ed. [email or web address] [place] [address], [place], [address], 03/23/2024 11:31:21 03/24/19 25 03/24/2024 US, obste tric, bioph ysica l profi le No observ ation record ed. [email or web address] [place] [address], [place], [address], 03/24/2024 17:53:30 03/25/19 25 03/24/2024 US, obste tric, bioph ysica l profi le No observ ation record ed. [email or web address] [address], [place], [address], 03/25/2024 16:18:01 03/26/19 25 03/24/2024 non-s tress test No observ ation record ed. [email or web address] [place] [address], [place], [address], 03/26/2024 17:21:36 03/26/19 25 03/24/2024 non-s tress test No observ ation record ed. [email or web address] Not Available 03/26 17:25:25 03/30/19 25 03/30/2024 US, obste tric, bioph ysica l profi le + non-s tress test No observ ation record ed. [email or web address] [place] [address], [place], [address], 03/30/2024 18:17:31 03/30/19 25 03/30/2024 US, obste tric, bioph ysica l profi le + non-s tress test No observ ation record ed. [email or web address] [address], [place], [address], 03/30/2024 22:41:49 03/30/19 25 03/30/2024 non-s tress test No observ ation record ed. [email or web address] [place] [address], [place], [address], 03/30/2024 17:49:15 04/06/19 25 04/06/2024 US, obste tric, bioph ysica l profi le + non-s tress test No observ ation record ed. [email or web address] [place] [address], [place], [address], 04/06/2024 17:43:05 04/06/19 25 04/06/2024 US, obste tric, follo w-up No observ ation record ed. [address], [place], [address], 04/07/2024 09:23:28 04/06/19 25 04/06/2024 non-s tress test No observ ation record ed. [email or web address] [place] [address], [place], [address], 04/06/2024 17:46:49 04/13/19 25 04/13/2024 US, obste tric, follo w-up No observ ation record ed. [email or web address] [place] [address], [place], [address], 04/13/2024 17:30:39 04/13/19 25 04/13/2024 US, obste tric, follo w-up No observ ation record ed. [email or web address] [address], [place], [address], 04/14/2024 23:16:54 04/13/19 25 04/13/2024 non-s tress test No observ ation record ed. [email or web address] [place] [address], [place], [address], 04/13/2024 17:04:27 Result Notes None recorded. Problems Name Problem SNOMED Code Status Onset Date Resolution Date Notes Provider Name and Address Organization Details Recorded Time 79246873 Active 2023 Alicia montez, [facility] 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 4 16:27:31 Hypothyro idism 65703913 Active Currently on 75mcg Maureen montez, [facility] 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 17:01:25 Problem Notes None recorded. Procedures Surgical History Date Name Laterality Status Provider Name and Address Organization Details Recorded Time 10/03/19 24 Date of Last Pap Smear completed Lizzy Woods [facility] 10/03/2023 12:52:26 04/17/19 24 intrauterine artificial insemination completed Lizzy Woods [facility] 10/03/2023 12:54:23 03/17/19 08 [facility] 12:54:57 Imaging Results Imaging Date Name Status LastModified by Organiz ation Details LastModified Time 03/15/2024 US, obstetric, follow-up completed [email or web address] [address], [place], [address], 03/15/2024 17:25:22 03/15/2024 US, obstetric, follow-up completed [email or web address] [address], [place], [address], 03/15/2024 21:49:06 03/15/2024 non-stress test completed [email or web address] [place] [address], [place], [address], 03/15/2024 21:27:37 03/15/2024 non-stress test completed [email or web address] [place] [address], [place], [address], 03/23/2024 11:31:21 03/24/2024 US, obstetric, biophysical profile completed [email or web address] [place] [address], [place], [address], 03/24/2024 17:53:30 03/24/2024 US, obstetric, biophysical profile completed [email or web address] [address], [place], [address], 03/25/2024 16:18:01 03/24/2024 non-stress test completed [email or web address] [place] [address], [place], [address], 03/26/2024 17:21:36 03/24/2024 non-stress test completed [email or web address] Informati on not available 03/26/2024 17:25:25 03/30/2024 US, obstetric, biophysical profile + non-stress test completed [email or web address] [place] [address], [place], [address], 03/30/2024 18:17:31 03/30/2024 US, obstetric, biophysical profile + non-stress test completed [email or web address] [address], [place], [address], 03/30/2024 22:41:49 03/30/2024 non-stress test completed [email or web address] [place] [address], [place], [address], 03/30/2024 17:49:15 04/06/2024 US, obstetric, biophysical profile + non-stress test completed [email or web address] [place] [address], [place], [address], 04/06/2024 17:43:05 04/06/2024 US, obstetric, follow-up completed [address], [place], [address], 04/07/2024 09:23:28 04/06/2024 non-stress test completed [email or web address] [place] [address], [place], [address], 04/06/2024 17:46:49 04/13/2024 US, obstetric, follow-up completed [email or web address] [place] [address], [place], [address], 04/13/2024 17:30:39 04/13/2024 US, obstetric, follow-up completed [email or web address] [address], [place], [address], 04/14/2024 23:16:54 04/13/2024 non-stress test completed [email or web address] [place] [address], [place], [address], 04/13/2024 17:04:27 Procedure Notes None recorded. Medical Equipment None [...] Not Available Not Available Not Available Vitals Date Recorded Body height Body mass index (BMI) Body weight Systolic blood pressure Diastolic blood pressure Provider Name and Address Organization Details Last Updated DateTime 04/06/2024 162.56 cm 34.2 kg/m2 12148.88 g 111 mm[Hg] 73 mm[Hg] [facility] 17:23:55 Date Recorded Body height Body mass index (BMI) Body weight Systolic blood pressure Diastolic blood pressure Provider Name and Address Organization Details Last Updated DateTime 04/13/2024 162.56 cm 33.6 kg/m2 57352.10 452 g 118 mm[Hg] 77 mm[Hg] Chastity [facility] 17:00:12 Social History Question Answer Notes LastModified by Organizat ion Details LastModified Time Tobacco Smoking Status Never Smoker Nayely montez, [facility] 05/18/2022 12:25:52 Do You Have An Advance Directive? No Information n ot available 04/13/2021 What Is Your Level Of Alcohol Consumption? None Information not available 04/13/2021 If You Are , What Was Your Level Of Alcohol Consumption Prior To ? Occasional [email or web address] Information not available 10/07/2023 Are You Blind [...] available 04/13/2021 Are You Currently Employed? No Information not available 03/30/2024 Are You Deaf Or Do You Have Serious Difficulty Hearing? No Information not available 04/13/2021 What Type Of Diet Are You Following? REGULAR Information n ot available 04/13/2021 What Is The Highest Grade Or Level Of School You Have Completed Or The Highest Degree You Have Received? [id number] Information not available 04/13/2021 What Is Your Occupation? Student Information not available 04/13/2021 Are There Any Guns Present In Your Home? No Information not available 04/13/2021 Do You Use Protection During Sex? No Information not available 04/13/2021 Do You Use Your Seat Belt Or Car Seat Routinely? Yes Information not available 04/13/2021 Are You Sexually Active? Yes [email or web address] Information not available 03/30/2024 Do You Have Smoke And Carbon Monoxide Detectors In Your Home? Yes Information not available 04/13/2021 How Much Tobacco Do You Smoke? No Information not available 04/13/2021 Do You Feel Stressed (tense, Restless, Nervous, Or Anxious, Or Unable To Sleep At Night)? [id number] Information not available 04/13/2021 Do You Use Any Illicit Or Recreational Drugs? No Information not available 04/13/2021 Do You Use Sunscreen Routinely? No Information not available 04/13/2021 Has Tobacco Cessation Counseling Been Provided? No [email or web address] Information not available 03/30/2024 Have You Used IV Drugs? No Information not available 04/13/2021 Do You Or Have You Ever Used Any Other Forms Of Tobacco Or Nicotine? No [email or web address] Information not available 03/30/2024 Sex: Unknown Functional [...] SNOMED-CT Code Diagnosis ICD10 Code Diagnosis Note [id number] Pee Hayes MD [place] [address] [address] 04/13/2021 12:50:00 04/16/2021 13:00:54 Abnormal uterine bleeding 6400410520 9100 N93.9 a 35-year-ol d female who presents for abnormal bleeding. She has had 1 month of intermitte nt bleeding. Prior to that 1 month she had history on history of regular periods with symptoms suggestive of regular ovulation. Patient is interested in conception . She had a miscarriag e about 1 year ago. She believes that she has a problem with fertility. She is considerin g evaluation for irregular bleeding and considerin g evaluation for infertilit y. We discussed these evaluation s. We discussed the menstrual cycle. We discussed ovulation. We discussed timing of intercours e. We discussed abnormal bleeding and normal bleeding. I offered her evaluation for abnormal uterine bleeding and ultrasound . She decided she wanted to think about it. We spoke for 25 minutes. We spoke about 2 complex issues. She will consider evaluation for abnormal uterine bleeding, exam, ultrasound , laboratory evaluation . [id number] Karime Arevalo , [facility] [address] [address] 05/11/2021 14:10:11 05/11/2021 15:20:19 Abnormal uterine bleeding 7108275538 9100 N93.9 EXTREMELY friable cervix which has a meaty red area between 8-12 o'clock on the face of the cervix. that when touched by swab or pap brush bleeds very easily bright red blood.This is likely the PCB she recently experience d and quite possibly is the contributi ng factor to the change in her periods that have lengthened the days of bleeding & increased the flow of her cycles since February 2021.She recently had updated labs that were wnl.She denies sx's of anemia & declines the need for additional CBC/CMP/Ir on levels today.She has agreed to an updated TVUS, vag std swab, & pap smear today.We will await these results to determine next steps for her regarding this issue.I did discuss that if these results were wnl a colposcopy might be indicated so we can take a closer look at this area of concern which might be a cervical polyp that has somewhat developed more into the cervical tissue. She has verbalized understand ing of this plan of care & is agreeable to pursue. Time spent in visit is a total of 26 mins with at least 50% of visit consisting of counseling and review of plan of care.Addit ional precaution srinath measures were taken to minimize potential exposure to the Covid-19 virus during this patient? s visit, including available hand patient flow coordinator upon arrive, temperatur e check and being asked a series of screening questions. All staff wore face coverings during this encounter, as well as provided additional cleaning and sanitizing of all surfaces, including countertop s, pens, chairs, door handles, light switches, etc, prior to and following the patient? s visit. [id number] Miryam Oolitic [place] [address] [address] 05/11/2021 16:25:10 05/11/2021 17:14:58 Abnormal uterine bleeding 7241430398 9100 N93.9 a 35-year-ol d female who presents for abnormal bleeding. She has had 1 month of intermitte nt bleeding. Prior to that 1 month she had history on history of regular periods with symptoms suggestive of regular ovulation. Patient is interested in conception . She had a miscarriag e about 1 year ago. She believes that she has a problem with fertility. She is considerin g evaluation for irregular bleeding and considerin g evaluation for infertilit y. We discussed these evaluation s. We discussed the menstrual cycle. We discussed ovulation. We discussed timing of intercours e. We discussed abnormal bleeding and normal bleeding. I offered her evaluation for abnormal uterine bleeding and ultrasound . She decided she wanted to think about it. We spoke for 25 minutes. We spoke about 2 complex issues. She will consider evaluation for abnormal uterine bleeding, exam, ultrasound , laboratory evaluation . [id number] Pee Hayes MD [place] [address] [address] 08/24/2021 17:00:46 08/27/2021 14:38:59 Abnormal uterine bleeding 1737554034 9100 N93.9 this patient is a 36-year-ol d female who initially presented for irregular bleeding. Recently her periods have been regular. She has premenstru al symptoms. She has a well-defin ed start finished her menstrual cycle that is reproducib le as is the volume and wintertime . It is predictabl e in timing. There was a period of few months where she was bleeding irregularl y but things seem to have gotten regular again. We reviewed her ultrasound results. She has a small fibroid. Patient 9 trying to get for a year. She seems to ovulate regularly. She has been with miscarriag e more than a year ago. He is reported to have a normal semen analysis. We spent over 40 minutes face-to-fa ce. More than 50% was counseling . We talked about ovulation in the menstrual cycle. We talked about conception . We talked about evaluation of infertilit y. Talked about irregular bleeding and anovulatio n. We reviewed her laboratory results. She has a normal sex hormone evaluation . Talked about hysterosal pingogram an ovulation induction. We going to consider hysterosal pingogram possibly move forward with ovulation induction [id number] Pee Hayes MD [place] [address] [address] 05/18/2022 12:24:54 05/20/2022 13:23:01 Unexplained infertility 116347190 N97.9 this patient is a 36-year-ol d female with unexplaine d infertilit y. We talked about enhancing her chance of getting . We talked about the evaluation . We spent more than 20 minutes face-to-fa ce. More than 50% was counseling . Talked about hysterosal pingogram and how it is essential in this situation. Talked about scheduling the procedure. Talked about referral to [facility] for her treatment of infertilit y. Explained briefly these steps am ovulation induction and intrauteri ne inseminati on. She will contact us for scheduling hysterosal pingogram [id number] [facility] [address] [address] 09/19/2023 16:16:26 09/19/2023 17:20:15 Threatened miscarriage 59108963 O20.0 Z3A.09 [id number] Maureen Herrera [place] [address],[place] [address] 10/03/2023 11:59:02 10/03/2023 12:59:25 test positive 037064259 Z32.01 [id number] Ilsa Zee [facility] [address],[place] [address] 10/03/2023 11:59:48 10/03/2023 14:09:34 Amenorrhea 66979302 N91.2 [id number] [facility] [address],[place] [address] 10/15/2023 14:55:01 10/15/2023 15:28:02 screening 908676612 Z36.82 Z3A.12 [id number] [facility] [address],[place] [address] 10/15/2023 14:55:22 10/15/2023 16:44:24 Hypothyroidism 80545807 E03.9 screening 2437 67636 Z36.89 Sex chromo some aneuploidy 316234761 Q99.8 Gestation period, 12 weeks 26205625 Z3A.12 Routine an tenatal care 915103615 Z34.91 [id number] AYDIN TRAN MD [place] [address],[place] [address] 11/14/2023 13:56:02 11/14/2023 14:52:15 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 Gestation period, 17 weeks 37902242 Z3A.17 Advanced m aternal age 975001126 O09.522 Hypothyroidism 42229096 E03.9 [id number] AYDIN TRAN MD [place] [address],[place] [address] 12/19/2023 16:30:43 12/22/2023 10:17:42 Advanced maternal age 701584392 O09.522 Hypothyroidism 82403941 E03.9 Sex chromo some aneuploidy 073224002 Q99.8 Gestation period, 22 weeks 70687863 Z3A.22 [id number] AYDIN TRAN MD [place] [address],[place] [address] 01/26/2024 16:05:03 01/26/2024 16:46:36 Hypothyroidism in 883802529 E03.9 - will repeat with labs today Advanced m aternal age 369610028 O09.522 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, declined amniocente sis Gestation period, 27 weeks 45194236 Z3A.27 - continue PNV [id number] Mirna Patricia [place] [address],[place] [address] 02/10/2024 15:31:40 02/10/2024 16:27:50 Gestational diabetes mellitus 00046309 O24.410 O28.0 Z3A.29 [id number] AYDIN TRAN MD [place] [address],[place] [address] 02/10/2024 15:33:08 02/10/2024 16:38:21 Gestational diabetes mellitus 83078829 O24.419 Advanced m aternal age 294655627 O09.522 Hypothyroidism 61618525 E03.9 - TSH stable, will continue synthroid Anomaly of sex chromosome 35474472 Q99.8 - 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, declined amniocente sis Gestation period, 29 weeks 39379912 Z3A.29 [id number] AYDIN TRAN MD [place] [address],[place] [address] 02/27/2024 16:29:29 03/01/2024 10:14:51 Gestational diabetes mellitus 67448347 O24.419 Advanced m aternal age 939568084 O09.522 Hypothyroidism 50554064 E03.9 - TSH stable, will continue synthroid Anomaly of sex chromosome 24578392 Q99.8 - XXY on NIPT, declined amniocente sis Gestation period, 32 weeks 2714350 Z3A.32 [id number] Lizzy Woods [place] [address],[place] [address] 03/15/2024 15:51:23 03/16/2024 06:44:59 Gestational diabetes mellitus 34918647 O24.414 [id number] Ally Simpson [place] [address],[place] [address] 03/15/2024 15:52:53 03/15/2024 16:47:38 Gestational diabetes mellitus 99033139 O24.414 O99.283 O28.5 Z3A.34 [id number] Pee Hayes MD [place] [address],[place] [address] 03/15/2024 15:53:08 03/15/2024 17:58:35 Routine care 874700332 Z34.93 [id number] Lizzy Chuck [place] [address],[place] [address] 03/24/2024 15:28:11 03/27/2024 09:18:34 Gestational diabetes mellitus 60600724 O24.414 [id number] Makenzie Hoffmanningdeisy [facility] [address],[place] [address] 03/24/2024 15:29:31 03/24/2024 17:52:47 71314826 Z33.1 Gestationa l diabetes mellitus 86923166 O24.419 544010 AYDIN TRAN MD [place] [address],[place] [address] 03/24/2024 15:36:18 03/26/2024 01:41:11 Gestational diabetes mellitus class A2 28830055 O24.414 Gestation period, 35 weeks 97574912 Z3A.35 Advanced m aternal age 191258794 O09.522 Hypothyroidism 28328415 E03.9 - TSH stable, will continue synthroid Anomaly of sex chromosome 37893171 Q99.8 - XXY on NIPT, declined amniocente [facility] [id number] Ally [facility] [address],[place] [address] 03/30/2024 15:55:13 03/30/2024 16:46:31 Gestational diabetes mellitus 12763662 O24.414 O09.523 Z3A.36 [id number] Chastity Shetty [place] [address],[place] [address] 03/30/2024 15:55:33 03/31/2024 10:45:11 Gestational diabetes mellitus 28085273 O24.419 [id number] AYDIN TRAN MD [place] [address],[place] [address] 03/30/2024 15:55:53 03/30/2024 17:41:49 Gestational diabetes mellitus class A2 44621943 O24.414 - fasting well controlled on 7u lantus qHS; two PP elevated- continue current regimen Hypothyroidism 71201193 E03.9 - TSH stable, will continue synthroid Anomaly of sex chromosome 65186631 Q99.8 - XXY on NIPT, declined amniocente sis Gestation period, 36 weeks 13940619 Z3A.36 - continue PNV [id number] Mirna Gomez [place] [address],[place] [address] 04/06/2024 15:56:54 04/06/2024 16:49:31 Gestational diabetes mellitus 23918113 O24.414 O09.523 Z3A.37 [id number] Chastity Shetty [place] [address],[place] [address] 04/06/2024 15:57:18 04/07/2024 10:24:20 Gestational diabetes mellitus 89425759 O24.419 [id number] AYDIN TRAN MD [place] [address],[place] [address] 04/06/2024 15:57:42 04/06/2024 17:41:19 Anomaly of sex chromosome 75205747 Q99.8 - XXY on NIPT, declined amniocente sis Gestationa l diabetes mellitus class A2 82934853 O24.414 - fasting well controlled on 7u lantus qHS; two PP elevated- continue current regimen Advanced m aternal age 077461943 O09.522 Hypothyroidism 09386871 E03.9 - TSH stable, will continue synthroid Gestation period, 37 weeks 33202285 Z3A.37 [id number] Ally Simpson [place] [address],[place] [address] 04/13/2024 15:55:48 04/13/2024 16:38:05 Gestational diabetes mellitus 74745503 O24.414 O09.523 O99.283 Z3A.38 [id number] Chastity Shetty [place] [address] [address] 04/13/2024 15:57:50 04/13/2024 17:06:50 Gestational diabetes mellitus 75519467 O24.419 [id number] AYDIN TRAN MD [place] [address] [address] 04/13/2024 15:58:38 04/13/2024 18:03:46 Hypothyroidism in 175103877 E03.9 - TSH wnl Anomaly of sex chromosome 47638998 Q99.8 - XXY on NIPT, declined amniocente sis Gestationa l diabetes mellitus class A2 17425108 O24.414 - continue current regimen Advanced m aternal age 255993006 O09.522 Gestation period, 38 weeks 31202970 Z3A.38 [id number] AYDIN TRAN MD [place] [address] [address] 04/19/2024 10:35:25 04/19/2024 16:25:19 Health Concerns Section Related Observation LastModified by Organization Detai ls LastModified Time None Recorded Concern Status LastModified by Organization Details LastModified Time None Recorded Advance Directives Directive N: Payers Encounter Date Sequence Insurance Name Policy Number Policy Linda Covered Member ID Linda Member ID Guarantor Name 04/06/2024 1 UMR [id number] Dayne Doan [id number] Dayne Doan 04/13/2024 1 UMR [id number] Dayne Doan [id number] Dayne Doan 04/13/2024 1 UMR [id number] Dayne Doan [id number] Dayne Doan 04/13/2024 1 UMR [id number] Dayne Doan [id number] Dayne Doan 04/19/2024 1 UMR [id number] Dayne Doan [id number] Dayne Doan OBGyn Episode Ob Episode Information Episode Created Date Number of Fetuses Patient Bloodtype Patient rh Status Prepregnancy Weight lbs Domestic Partner Domestic Partner Phone Father Name Corporate Coordinator Status 04/13/19 22 1 CLOSED Fetus Data First Name Last Name Admitted to NICU Weight (g) Sex Living Outcome Pediatric Complications Fetus ID Race Codes Race Delivery Type , Spontane ous [id number] Frank Calculation Initial Frank Date Initial Exam Date Initial Exam Provider Initial Ultrasound Date Last Menstrual Period Date Ultra Sound Weeks Gestation 0 Eighteen To Twenty Week Frank Update Ultra Sound Date Fundal Height At Umbil Quickening Date Ultra Sound Latest Weeks Gestation Final Frank Confirmed By Final Frank Confirmed Date Final Frank Date Ultra Sound Latest Days Gestation 0 0 Menstrual History Last Menstrual Date Menses Monthly On Bcp Conception Prior Menses Frequency Hcg Plus Date Menarche Onset Age Delivery Information Delivery Date Delivery Type Labor Anesthesia Weeks Gestation Incision Type Labor Labor Length Hrs Delivered By Post Complications Tubal Sterilization Discharge Date Comments 1 Discharge Information Feeding Method Contraceptive Method Maternal HG B and HCT Levels Ob Episode Information Episode Created Date Number of Fetuses Patient Bloodtype Patient rh Status Prepregnancy Weight lbs Domestic Partner Domestic Partner Phone Father Name Corporate Coordinator Status 08/28/19 1 CLOSED Fetus Data First Name Last Name Admitted to NICU Weight (g) Sex Living Outcome Pediatric Complications Fetus ID Race Codes Race Delivery Type , Spontane ous Frank Calculation Initial Frank Date Initial Exam Date Initial Exam Provider Initial Ultrasound Date Last Menstrual Period Date Ultra Sound Weeks Gestation 0 Eighteen To Twenty Week Frank Update Ultra Sound Date Fundal Height At Umbil Quickening Date Ultra Sound Latest Weeks Gestation Final Frank Confirmed By Final Frank Confirmed Date Final Frank Date Ultra Sound Latest Days Gestation 0 0 Menstrual History Last Menstrual Date Menses Monthly On Bcp Conception Prior Menses Frequency Hcg Plus Date Menarche Onset Age Delivery Information Delivery Date Delivery Type Labor Anesthesia Weeks Gestation Incision Type Labor Labor Length Hrs Delivered By Post Complications Tubal Sterilization Discharge Date Comments 3 Discharge Information Feeding Method Contraceptive Method Maternal HG B and HCT Levels Ob Episode Information Episode Created Date Number of Fetuses Patient Bloodtype Patient rh Status Prepregnancy Weight lbs Domestic Partner Domestic Partner Phone Father Name Corporate Coordinator Status 10/15/19 24 1 O Positive 164 OPEN Fetus Data First Name Last Name Admitted to NICU Weight (g) Sex Living Outcome Pediatric Complications Fetus ID Race Codes Race Delivery Type [id number] Problems Problem Notes 11/04/23 8:15am u/s and raul ic counseling, 01/06 230p u/s only, 02/02/24 730a u/s only Problem Name Start Date End Date Resolution Snomed Code Not e Gestational diabetes mellitus 02/02/2024 38154303 BS QID, growth u//16 Lantus 7u @ night , antental testing scheduled to start 34wks pt decline to start week of 03/01 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, [facility] referral sent Advanced maternal age [id number] bASA Hypothyroidism [id number] Currdeisy ntly on 75mcg Frank Calculation Initial Frank [...] Date Ultra Sound Latest Days Gestation 0 [id number] 10/15/2023 04/23/19 25 0 Pre-adrianne Flowsheet Flowsheet Date 10/15/2023 Perdue Score Blood Edema Fundus Height Fundus Units Glucose Ketones Leukocytes Nitrite Labor Signs Protein Cervic Dilation Cervic Effacement Cervic Station Type Weight in lbs Pre/Post Dialysis Refused Weight 165.623561577478 BP Diastolic BP Location Tested BP Systolic BP Type 72 108 Fetus Heart Rate Present A 170 Fetus Movement Comments Patient presents [facility]. Her has been thus far uncomplicated. She does have a history of hemorrhoids and constipation which have been improved. NT/NB wnl today. 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 Recommend diagnostic testing with [facility] vs amniocentesis, referral to [facility] sent. Patient voices understanding, appropriately tearful. Other [...] Weight in lbs Pre/Post Dialysis Refused Weight 167.552532228821 BP Diastolic BP Location Tested BP Systolic BP Type 84 123 Fetus Heart Rate Present A 150 Fetus Movement Comments Doing well, no cramping or b leeding. No movement yet. Saw [facility] for concern for Holman syndrome, declines further diagnostic testing in . Will plan for cord blood collection at delivery. Anatomy US at [facility]. Taking bASA for AMA. TSH wnl, continue current levothyroxine. Discussed childbirth and classes at [place]. RTC 4 weeks. Flowsheet Date 12/19/2023 Perdue Score Blood Edema Fundus Height Fundus Units Glucose Ketones Leukocytes Nitrite Labor Signs Protein Cervic Dilation Cervic Effacement Cervic Station neg none none trace Type Weight in lbs Pre/Post Dialysis Refused 178.520470299454 BP Diastolic BP Location Tested BP Systolic BP Type 80 L arm 125 sitting Fetus Heart Rate Present A 145 Fetus Movement A Yes Comments Starting to feel movem ent. No cramping or bleeding. Had anatomy US with [facility], all normal aside from suboptimal view of right foot. Repeat scheduled 01/06. Overall feeling well. RTC 4 weeks. Flowsheet Date 01/26/2024 Perdue Score Blood Edema Fundus Height Fundus Units Glucose Ketones Leukocytes Nitrite Labor Signs Protein Cervic Dilation Cervic Effacement Cervic Station neg none none trace Type Weight in lbs Pre/Post Dialysis Refused 184.465600184422 BP Diastolic BP Location Tested BP Systolic [...] Type Weight in lbs Pre/Post Dialysis Refused 192.244700703617 BP Diastolic BP Location Tested BP Systolic [...] Type Weight in lbs Pre/Post Dialysis Refused 190.134690364329 BP Diastolic BP Location Tested BP Systolic [...] Weight in lbs Pre/Post Dialysis Refused Weight 192.185194384124 BP Diastolic BP Location Tested BP Systolic [...] Type Weight in lbs Pre/Post Dialysis Refused 192.129132274631 BP Diastolic BP Location Tested BP Systolic [...] Weight in lbs Pre/Post Dialysis Refused Weight 196.783906791869 BP Diastolic BP Location Tested BP Systolic [...] Weight in lbs Pre/Post Dialysis Refused Weight 196.047554346367 BP Diastolic BP Location Tested BP Systolic [...] Weight in lbs Pre/Post Dialysis Refused Weight 197.418770574246 BP Diastolic BP Location Tested BP Systolic [...] Weight in lbs Pre/Post Dialysis Refused Weight 199.437872180412 BP Diastolic BP Location Tested BP Systolic [...] Type Weight in lbs Pre/Post Dialysis Refused 196.197988733862 BP Diastolic BP Location Tested BP Systolic [...] Estim ated Date of Delivery true Thalassemia (Hungarian, Czech, Mediterranean, Or Background): MCV < 80 false Neural Tube Defect (Meningomyelocele, Spina Bifi da, Or Anencephaly) false Congenital Heart Defect false Down Syndrome false Scar-Sachs (eg, Anglican, Cajun, Malawian-Clayton) f alse Carmina Disease false Sickle Cell Disease Or Trait () false Hemophilia Or Other Blood Disorders false Muscular Dystrophy false Cystic Fibrosis false Ita's Chorea false Intellectual Disability/Autism false If Yes, [...]
--- OUTSIDE RECORDS SUMMARY | 2024-04-19 17:13 | XMS_ITS | Clinical Summary ---
Author Organization [facility] Address [address] 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 This disclosure is being madepursuant to the Care Everywhere program and may not contain all information available regarding this patient. Last updated 17.[facility] Allergies No known active allergies Medications * [...] on last me nstrual period of 07/18/2023 Family History Medical History Relation Name Comments CAD (Coronary Artery Disease) Father CAD (Coronary Artery Disease) Other 4 CAD (Coronary Artery Disease) Other 5 Relation Name Status Comments Father [facility] in 50's Other 1 Fetus - In Utero high risk N IPT XYY Other 2 José Miguel Alive Other 3 Alive Other 4 (Age 51) heart michael ck Other 5 (Age 38) Heart michael ck Other 6 Alive Other 7 Alive Other 8 (Age 9) vehical acc ident Other 9 Alive Other 10 Alive Other 2020 Other 12 Fetus - Spontaneous 2022 Social History Tobacco Use Types Packs/Day Years [...] Mass Index - - Plan of Treatment Health Maintenance Due Date Last Done Comments HIV SCREENING 06/30/2002 HEPATITIS C SCREENING 06/26/2005 DTAP/TDAP/TD VACCINES (1 - Tdap) 06/30/2006 HEPATITIS B VACCINE (1 of 3 - 19+ 3-dose series) 06/30/2006 COVID-19 VACCINE ( - 2023-2 5 season) 2023 10/13/2020, 09/22/2020 INFLUENZA VACCINE (#1) 2023 02/08/2022 OB-ONE HOUR GLUCOSE 01/16/2024 OB-TDAP CURRENT 01/23/2024 OB-RHOGAM INJECTION 01/30/2024 DEPRESSION SCREENING 03/17/2024 OB-GROUP B STREP SCREEN 03/19/2024 PAP SMEAR 10/02/2026 10/03/2023 ZOSTER VACCINE (1 of 2) 06/30/2037 HIB VACCINE Aged Out No longer eligi ble based on patient's age to complete this topic HPV VACCINE Aged Out No longer eligi ble based on patient's age to complete this topic MENINGOCOCCAL (Group B) VACCINE Aged Out No longer eligible b ased on patient's age to complete this topic MENINGOCOCCAL VACCINE Aged Out No gris maura eligible based on patient's age to complete this topic PNEUMOCOCCAL VACCINE Aged Out No long er eligible based on patient's age to complete this topic Respiratory Syncytial Virus (RSV) Vaccine Pt: or over 60 yrs (No Doses Required) Completed
[2024-04-19 17:39] VITALS: BMI 33.7
--- NOTE | 2024-04-19 17:40 | LDADM ---
This patient, Patti Franki, was admitted to Labor/Delivery/Recovery 108 on 04/19/24 at 17:02. Plans for labor, pain management and were discussed with patient. Patient/family oriented to hospital policies and general routines including ID bracelet, bed and alarms, visiting hours, pain management, procedures, bathroom and other care routines, personal items, smoking policy, room service/diet and guest tray routines, infant security routines, and visiting hours. Patient/Family are encouraged to report perceived risks to care and to ask questions if they do not understand what they are told or what they should do. See OBIX for further documentation.
[2024-04-19 17:52] LABS: Basophils Percent Auto 0.3 % (0.2-1.2); Eosinophils Percent Auto 0.2 % (0-4.4); Hematocrit 39.1 % (37.0-47.0); Hemoglobin 13.5 g/dL (12.0-15.0); Immature Granulocyte Absolute 0.06 K/mm3 (0.00-0.031); Immature Granulocyte Percent A 0.6 % (0-0.5); Lymphocytes Absolute Auto 1.42 K/mm3 (0.9-3.2); Lymphocytes Percent Auto 13.9 % (18.3-44.2); Mean Corpuscular HGB Conc 34.5 g/dl (32-36); Mean Corpuscular Hemoglobin 32.1 pg (26-34); Mean Corpuscular Volume 93.1 fl (80-100); Mean Platelet Volume 10.3 fl (7.4-10.4); Monocytes Percent Auto 9.7 % (2.6-8.5); Neutrophils Absolute Auto 7.7 K/mm3 (1.3-6.7); Neutrophils Percent Auto 75.3 % (45.5-73.1); Platelet Count Result 232 k/mm3 (150-375); Red Cell Distribution Width 13.9 % (11.5-14.5); White Blood Count 10.2 K/mm3 (4.5-10.0)
[2024-04-19 18:07] VITALS: BP 120/83; PULSE 101
[2024-04-19 18:15] VITALS: BP 118/82; PULSE 97
[2024-04-19] MEDS: miSOPROStol 25 MCG TABLET 50 MCG BUCCAL ×2 (18:17→22:30)
[2024-04-19 18:31] LABS: Rapid Plasma Reagin Non-Reactive (NonReactive)
[2024-04-19 18:35] LABS: Glucose Point of Care 124 mg/dl (65-105)
[2024-04-19 18:49] LABS: HIV 1/2 Ab P24 Ag Result Negative (Negative)
[2024-04-19 19:00] VITALS: BP 126/81; PULSE 92
[2024-04-19] MEDS: INSULIN GLARGINE (*BKC) 100 UNITS/ML 7 UNITS SUB-Q (21:06)
[2024-04-19 22:39] LABS: Glucose Point of Care 226 mg/dl (65-105)
[2024-04-19] MEDS: INSULIN HUMAN REGULAR (*BKC) 100 UNITS/ML SUB-Q (22:55)
[2024-04-19 23:00] VITALS: BP 117/66; PULSE 82
[2024-04-19 23:34] LABS: Glucose Point of Care 166 mg/dl (65-105)
[2024-04-20] VITALS (168 sets, daily range): BP systolic 96–144; BP diastolic 54–100; PULSE 66–152; RESP 16–18; TEMP 36.3–37.2; O2SAT 92–100
[2024-04-20] MEDS: LACTATED RINGERS 1,000 ML 125 ML IV CONT ×2 (01:31→07:26)
[2024-04-20] MEDS: AMPICILLIN 2 GM/NS 100 ML 2 GM/100 ML BAG IVPB (01:32)
--- NOTE | 2024-04-20 02:41 | P.PNAN_ITS ---
Anes - Initial Pre Proc Eval Procedure: labor epidural Date/Time: 04/20/24 02:41 Surgeon: Juma Rouse MD Pre Op Diagnosis: labor pain Pre Op Diagnosis: IOL Patient Data Age: 38 Gender: F Height: 1.63 m Weight: 89 kg Last Vital Signs Temp 36.6 C 04/20/24 01:31 Pulse 79 04/20/24 02:39 BP 121/64 04/20/24 02:39 Pulse Ox 98 04/20/24 02:36 O2 Del Method Room Air 04/19/24 17:39 Allergies Allergy/AdvReac Type Severity Reaction Status Date / Time No Known Allergies Allergy Verified 03/26/24 12:38 Home Medications ?Medication ?Instructions ?Recorded ?Confirmed ?Type aspirin 81 mg capsule 81 mg PO DAILY 03/26/24 03/26/24 History insulin glargine 100 unit/mL 7 unit subcut QPM 03/26/24 03/26/24 History subcutaneous solution (Lantus U-100 Insulin) levothyroxine 75 mcg tablet 75 mcg PO DAILY 03/26/24 03/26/24 History (Euthyrox) vit no.95-ferrous 1 tablet PO DAILY 03/26/24 03/26/24 History fumarate 28 mg-folic acid 800 mcg tablet () Laboratory Tests 04/19/24 04/19/24 04/19/24 17:45 18:30 22:34 WBC 10.2 H K/mm3 (4.5-10.0) RBC 4.20 M/mm3 (4.2-5.4) Hgb 13.5 g/dL (12.0-15.0) Hct 39.1 % (37.0-47.0) MCV 93.1 fl (80-100) MCH 32.1 pg (26-34) MCHC 34.5 g/dl (32-36) RDW 13.9 % (11.5-14.5) Plt Count 232 k/mm3 (150-375) MPV 10.3 fl (7.4-10.4) Immature Gran % (Auto) 0.6 H % (0-0.5) Neut % (Auto) 75.3 H % (45.5-73.1) Lymph % (Auto) 13.9 L % (18.3-44.2) [place] % (Auto) 9.7 H % (2.6-8.5) Eos % (Auto) 0.2 % (0-4.4) Baso % (Auto) 0.3 % (0.2-1.2) Lymph # (Auto) 1.42 K/mm3 (0.9-3.2) [place] # (Auto) 1.0 H K/mm3 (0.1-0.6) Eos # (Auto) 0.0 K/mm3 (0-0.3) Baso # (Auto) 0.0 K/mm3 (0.0-0.1) Abs Immat Gran (auto) 0.06 H K/mm3 (0.00-0.031) Absolute Neuts (auto) 7.7 H K/mm3 (1.3-6.7) Absolute Nucleated RBC 0.000 K/mm3 (0.0-0.012) Nucleated RBC % 0.0 % (0.0-0.2) POC Capillary Glucose 124 H mg/dl 226 H mg/dl (65-105) (65-105) RPR Non-reactive (NonReactive) HIV 1&2 Ab/P24 Ag 4thGn Negative (Negative) Blood Type O Positive Antibody Screen Negative 04/19/24 23:31 WBC RBC Hgb Hct MCV MCH MCHC RDW Plt Count MPV Immature Gran % (Auto) Neut % (Auto) Lymph % (Auto) [place] % (Auto) Eos % (Auto) Baso % (Auto) Lymph # (Auto) [place] # (Auto) Eos # (Auto) Baso # (Auto) Abs Immat Gran (auto) Absolute Neuts (auto) Absolute Nucleated RBC Nucleated RBC % POC Capillary Glucose 166 H mg/dl (65-105) RPR HIV 1&2 Ab/P24 Ag 4thGn Blood Type Antibody Screen Patient hx anesthesia problems: none Family hx anesthesia problems: none Results Review: All pre-operative results and documents have been reviewed as part of the pre- operative evaluation. [facility] Family History Family History (Updated 03/26/24 @ 12:26 by Irlanda Alonzo RN) Father Acute myocardial infarction Social History Social History Smoking status: Never smoker Substance use: never Do You Feel Safe in your Home?: Yes Lack of Transportation: No Lack of Food: Never True Current Housing: I Have Housing Concerned About Future Housing: No Difficulty Paying Gas/Electric Bills: No Difficulty Paying for Meds: No Currently Unemployed: No Education: Master's Degree or Higher Difficulty w/ Childcare or Family Care: No Spiritual care concerns: No Anes - Eval Final PreProcedure Day of Procedure 04/20/24 02:15 Heart: regular rate and rhythm Lungs: clear to auscultation and normal air movement Airway: Mallampati scale class II Neurological: alert and oriented ASA classification: II Anesthetic plan: proceed Results Review: All pre-operative results and documents have been reviewed as part of the pre- operative evaluation. Informed Consent: The patient's anesthetic plan and its attendant risks and benefits were discussed with the patient/family/POA. Questions were solicited and answers provided to the satisfaction of the patient/family/POA.
[2024-04-20 03:38] LABS: Glucose Point of Care 108 mg/dl (65-105)
[2024-04-20] MEDS: ONDANSETRON INJ 4 MG/2 ML VIAL IV PUSH (03:59)
[2024-04-20] MEDS: AMPICILLIN 1 GM/NS 50 ML 1 GM/50 ML BAG IVPB ×2 (05:39→10:21)
[2024-04-20 05:45] LABS: Glucose Point of Care 107 mg/dl (65-105)
[2024-04-20 07:35] LABS: Glucose Point of Care 86 mg/dl (65-105)
--- NOTE | 2024-04-20 09:05 | PM.IMHP ---
H&P: HPI History of Present Illness Date/Time: 04/20/24 09:05 Chief Complaint: gestational diabetes mellitus A2, induction of labor Narrative: Patient is a 38 year old who presents for medical induction of labor, indicated for GDMA2. She has been somewhat controlled on 7u lantus at night. Fasting glucose has been wnl, however postprandial values have been elevated. Growth US and testing has been within normal limits. otherwise complicated by suspected XYY karyotype on NIPT; patient declined amniocentesis. Plan for cord blood collection at time of delivery to confirm. Denies strong contractions on admission, no vaginal bleeding or leakage of fluid prior to admission, good movement. Review of Systems Review of Systems: All systems reviewed & are unremarkable except as noted in HPI and below PMFSH Family History Family History Father Acute myocardial infarction Social History Social History Smoking status: Never smoker Substance use: never Do You Feel Safe in your Home?: Yes Lack of Transportation: No Lack of Food: Never True Current Housing: I Have Housing Concerned About Future Housing: No Difficulty Paying Gas/Electric Bills: No Difficulty Paying for Meds: No Currently Unemployed: No Education: Master's Degree or Higher Difficulty w/ Childcare or Family Care: No Spiritual care concerns: No Meds Home Medications and Allergies Home Medications ?Medication ?Instructions ?Recorded ?Confirmed ?Type aspirin 81 mg capsule 81 mg PO DAILY 03/26/24 03/26/24 History insulin glargine 100 unit/mL 7 unit subcut QPM 03/26/24 03/26/24 History subcutaneous solution (Lantus U-100 Insulin) levothyroxine 75 mcg tablet 75 mcg PO DAILY 03/26/24 03/26/24 History (Euthyrox) vit no.95-ferrous 1 tablet PO DAILY 03/26/24 03/26/24 History fumarate 28 mg-folic acid 800 mcg tablet () Allergies Allergy/AdvReac Type Severity Reaction Status Date / Time No Known Allergies Allergy Verified 03/26/24 12:38 Vital Signs Vital Signs - 24 hr 04/19/24 17:39 04/19/24 18:07 04/19/24 18:15 Temperature Pulse Rate 101 H 97 Blood Pressure 120/83 118/82 Pulse Oximetry Oxygen Delivery Room Air 04/19/24 19:00 04/19/24 23:00 04/20/24 00:00 Temperature Pulse Rate 92 82 80 Blood Pressure 126/81 117/66 119/69 Pulse Oximetry Oxygen Delivery 04/20/24 01:00 04/20/24 01:31 04/20/24 01:50 Temperature 97.9 F Pulse Rate 88 Blood Pressure 126/76 Pulse Oximetry 96 Oxygen Delivery 04/20/24 01:51 04/20/24 01:51 04/20/24 01:56 Temperature Pulse Rate Blood Pressure Pulse Oximetry 94 92 98 Oxygen Delivery 04/20/24 02:00 04/20/24 02:01 04/20/24 02:06 Temperature Pulse Rate 80 Blood Pressure 125/82 Pulse Oximetry 99 99 Oxygen Delivery 04/20/24 02:11 04/20/24 02:15 04/20/24 02:16 Temperature Pulse Rate 95 Blood Pressure 131/100 H Pulse Oximetry 100 99 Oxygen Delivery 04/20/24 02:16 04/20/24 02:18 04/20/24 02:21 Temperature Pulse Rate 100 Blood Pressure 129/94 H Pulse Oximetry 99 99 Oxygen Delivery 04/20/24 02:22 04/20/24 02:24 04/20/24 02:26 Temperature Pulse Rate 91 84 Blood Pressure 139/85 141/72 H Pulse Oximetry 99 Oxygen Delivery 04/20/24 02:27 04/20/24 02:30 04/20/24 02:31 Temperature Pulse Rate 123 H 97 Blood Pressure 130/82 129/67 Pulse Oximetry 100 Oxygen Delivery 04/20/24 02:33 04/20/24 02:36 04/20/24 02:39 Temperature Pulse Rate 82 82 79 Blood Pressure 129/70 128/71 121/64 Pulse Oximetry 98 Oxygen Delivery 04/20/24 02:41 04/20/24 02:42 04/20/24 02:45 Temperature Pulse Rate 81 83 Blood Pressure 123/66 127/60 Pulse Oximetry 100 Oxygen Delivery 04/20/24 02:46 04/20/24 02:48 04/20/24 02:51 Temperature Pulse Rate 84 78 Blood Pressure 125/72 122/63 Pulse Oximetry 100 100 Oxygen Delivery 04/20/24 02:54 04/20/24 02:56 04/20/24 02:57 Temperature Pulse Rate 77 86 Blood Pressure 120/62 112/65 Pulse Oximetry 100 Oxygen Delivery 04/20/24 03:00 04/20/24 03:01 04/20/24 03:03 Temperature Pulse Rate 81 81 Blood Pressure 113/64 110/57 L Pulse Oximetry 98 Oxygen Delivery 04/20/24 03:06 04/20/24 03:09 04/20/24 03:11 Temperature Pulse Rate 85 72 Blood Pressure 101/87 112/62 Pulse Oximetry 100 99 Oxygen Delivery 04/20/24 03:12 04/20/24 03:15 04/20/24 03:16 Temperature Pulse Rate 84 82 Blood Pressure 124/62 109/60 Pulse Oximetry 100 Oxygen Delivery 04/20/24 03:21 04/20/24 03:23 04/20/24 03:28 Temperature Pulse Rate Blood Pressure Pulse Oximetry 94 94 97 Oxygen Delivery 04/20/24 03:30 04/20/24 03:33 04/20/24 03:38 Temperature Pulse Rate 87 Blood Pressure 114/64 Pulse Oximetry 97 96 Oxygen Delivery 04/20/24 03:43 04/20/24 03:48 04/20/24 03:53 Temperature Pulse Rate Blood Pressure Pulse Oximetry 96 97 96 Oxygen Delivery 04/20/24 03:58 04/20/24 03:59 04/20/24 04:01 Temperature Pulse Rate 80 78 Blood Pressure 124/77 121/71 Pulse Oximetry 96 Oxygen Delivery 04/20/24 04:03 04/20/24 04:08 04/20/24 04:13 Temperature Pulse Rate Blood Pressure Pulse Oximetry 97 97 98 Oxygen Delivery 04/20/24 04:15 04/20/24 04:18 04/20/24 04:23 Temperature Pulse Rate 72 Blood Pressure 112/72 Pulse Oximetry 98 98 Oxygen Delivery 04/20/24 04:28 04/20/24 04:30 04/20/24 04:33 Temperature Pulse Rate 71 Blood Pressure 119/77 Pulse Oximetry 98 98 Oxygen Delivery 04/20/24 04:38 04/20/24 04:43 04/20/24 04:45 Temperature Pulse Rate 78 Blood Pressure 118/80 Pulse Oximetry 96 96 Oxygen Delivery 04/20/24 04:48 04/20/24 04:53 04/20/24 04:58 Temperature 97.8 F Pulse Rate Blood Pressure Pulse Oximetry 96 99 98 Oxygen Delivery 04/20/24 05:00 04/20/24 05:03 04/20/24 05:08 Temperature Pulse Rate 75 Blood Pressure 109/65 Pulse Oximetry 98 98 Oxygen Delivery 04/20/24 05:13 04/20/24 05:15 04/20/24 05:18 Temperature Pulse Rate 77 Blood Pressure 104/54 L Pulse Oximetry 98 97 Oxygen Delivery 04/20/24 05:23 04/20/24 05:28 04/20/24 05:30 Temperature Pulse Rate 77 Blood Pressure 109/60 Pulse Oximetry 97 97 Oxygen Delivery 04/20/24 05:33 04/20/24 05:38 04/20/24 05:43 Temperature Pulse Rate Blood Pressure Pulse Oximetry 97 99 100 Oxygen Delivery 04/20/24 05:45 04/20/24 05:48 04/20/24 05:53 Temperature Pulse Rate 82 Blood Pressure 124/71 Pulse Oximetry 99 100 Oxygen Delivery 04/20/24 05:58 04/20/24 06:00 04/20/24 06:03 Temperature Pulse Rate 78 Blood Pressure 123/74 Pulse Oximetry 99 99 Oxygen Delivery 04/20/24 06:08 04/20/24 06:13 04/20/24 06:15 Temperature Pulse Rate 69 Blood Pressure 120/80 Pulse Oximetry 99 99 Oxygen Delivery 04/20/24 06:18 04/20/24 06:23 04/20/24 06:28 Temperature Pulse Rate Blood Pressure Pulse Oximetry 99 99 99 Oxygen Delivery 04/20/24 06:30 04/20/24 06:33 04/20/24 06:38 Temperature Pulse Rate 79 Blood Pressure 132/89 Pulse Oximetry 99 99 Oxygen Delivery 04/20/24 06:43 04/20/24 06:45 04/20/24 06:48 Temperature Pulse Rate 76 Blood Pressure 127/76 Pulse Oximetry 100 99 Oxygen Delivery 04/20/24 06:53 04/20/24 06:58 04/20/24 07:00 Temperature Pulse Rate 71 Blood Pressure 127/70 Pulse Oximetry 99 99 Oxygen Delivery 04/20/24 07:03 04/20/24 07:08 04/20/24 07:13 Temperature Pulse Rate Blood Pressure Pulse Oximetry 98 98 100 Oxygen Delivery 04/20/24 07:15 04/20/24 07:18 04/20/24 07:23 Temperature Pulse Rate 152 H Blood Pressure 144/73 H Pulse Oximetry 99 100 Oxygen Delivery 04/20/24 07:28 04/20/24 07:30 04/20/24 07:33 Temperature Pulse Rate 86 Blood Pressure 117/69 Pulse Oximetry 100 99 Oxygen Delivery 04/20/24 07:38 04/20/24 07:43 04/20/24 07:45 Temperature Pulse Rate 79 Blood Pressure 108/65 Pulse Oximetry 100 100 Oxygen Delivery 04/20/24 07:48 04/20/24 07:53 04/20/24 07:58 Temperature Pulse Rate Blood Pressure Pulse Oximetry 99 99 99 Oxygen Delivery 04/20/24 08:00 04/20/24 08:03 04/20/24 08:08 Temperature Pulse Rate 81 Blood Pressure 116/65 Pulse Oximetry 99 100 Oxygen Delivery 04/20/24 08:13 04/20/24 08:15 04/20/24 08:18 Temperature Pulse Rate 76 Blood Pressure 110/63 Pulse Oximetry 99 99 Oxygen Delivery 04/20/24 08:23 04/20/24 08:28 04/20/24 08:30 Temperature 97.4 F L Pulse Rate 86 Blood Pressure 126/79 Pulse Oximetry 99 100 Oxygen Delivery 04/20/24 08:33 04/20/24 08:38 04/20/24 08:43 Temperature Pulse Rate Blood Pressure Pulse Oximetry 100 100 100 Oxygen Delivery 04/20/24 08:45 04/20/24 08:48 04/20/24 08:53 Temperature Pulse Rate 84 Blood Pressure 127/68 Pulse Oximetry 100 99 Oxygen Delivery 04/20/24 08:58 04/20/24 09:02 Temperature Pulse Rate Blood Pressure Pulse Oximetry 100 100 Oxygen Delivery Exam Const: General: comfortable and no acute distress HENMT: Mouth: Yes moist mucous membranes Cardio: Rate: regular rate Rhythm: regular rhythm : Other: SVE 10/100/-1 Extrem: General: normal to inspection Psych: Mental Status: mental status grossly normal H&P: Results Labs Labs: Short CBC 04/19/24 Range/Units 17:45 WBC 10.2 H (4.5-10.0) K/mm3 Hgb 13.5 (12.0-15.0) g/dL Hct 39.1 (37.0-47.0) % Plt Count 232 (150-375) k/mm3 Assessment and Plan Assessment and plan (1) Sex chromosome anomaly: Status: Acute Assessment and Plan: - XYY on NIPT, no confirmatory testing done per patient request - send chromosomal analysis at time of delivery (2) GDM, class A2: Code(s): O24.419 - Gestational diabetes mellitus in , unspecified control Status: Acute Assessment and Plan: - 7u lantus qHS - fair control - growth US and testing wnl (3) AMA (advanced maternal age) multigravida 35+: Code(s): O09.529 - Supervision of elderly multigravida, unspecified trimester Status: Acute (4) Encounter for induction of labor: Code(s): Z34.90 - Encounter for supervision of normal , unspecified, unspecified trimester Status: Acute Assessment and Plan: - s/p cytotec x2 - SROM ~0230 - SVE /-1, will start pushing with SONAM
[2024-04-20] MEDS: OXYTOCIN 30 UNITS/NS 500 ML 30 UNITS/500 ML BAG IV CONT (10:16)
[2024-04-20] MEDS: OXYTOCIN 30 UNITS/NS 500 ML 30 UNITS/500 ML BAG 125 UNITS IV CONT (11:38)
[2024-04-20] MEDS: WITCH HAZEL 40 PADS 1 PAD TOPICAL (13:03)
[2024-04-20] MEDS: ceFAZolin 2 GM/D5W 50 ML 2 GM/50 ML BAG IVPB (13:03)
[2024-04-20] MEDS: BENZOCAINE 20% AER SPR (*SP) 56 GM CAN 1 SPRAY TOPICAL (13:03)
--- NOTE | 2024-04-20 13:50 | OBPPTRN ---
Patient transferred to post room #281 via wheelchair. Support person present. Oriented to unit, room, information board, rooming in, admission packet and security measures. Patient verbalizes understanding.
--- NOTE | 2024-04-20 13:55 | PM.OBPRVD ---
OB - Vaginal Delivery Note Procedure Delivery date: 04/20/24 Events: Gestational Diabetes (A2), Positive Group B Strep (GBS) and Other (AMA, suspected XYY karyotype on NIPT) Induction method: Per Misoprostol Protocol Delivery augmentation: Pitocin Delivery monitor: External FHT and Internal Uterine Route of delivery: Episiotomy description: None Delivery repair: vicryl Specimen: No Quantitative Blood Loss (ml): 300 Anesthesia type: Epidural Disposition: Floor Complications: No immediate complications Narrative: See H&P and notes for details on patient's admission and labor. She progressed to complete cervical dilation and at the appropriate time began pushing. With adequate expulsive efforts by the mother, the baby's head was delivered without difficulty. Nuchal cord was present x1 and was easily reduced. The baby's left shoulder was anterior and delivered under the pubic symphysis without difficulty. The posterior shoulder and the rest of the baby delivered without difficulty. The umbilical cord was doubly clamped and cut after 60 seconds of delayed cord clamping. Care of the was then assumed by the nursing staff. [place] Baby Date of : 04/20/24 Gestational Age by Date: 41 gender: Male presentation: vertex position: Left Occiput Anterior Placenta delivery description: Manual Removal (umbilical cord avulsion with gentle traction) Cord Vessel Description: 3 Vessels, Nuchal Cord, Reduced and Delayed Cord Clamping
[2024-04-20] MEDS: DOCUSATE SODIUM 100 MG CAPSULE PO (17:51)
[2024-04-20] MEDS: ACETAMINOPHEN 325 MG TABLET 650 MG PO (17:52)
--- NOTE | 2024-04-20 18:08 | PC.NURSE ---
Addendum entered by Keke Carnes RN 04/21/24 15:56: 1410 Nipple shield provided to mother due to ineffective latch. Reviewed good handwashing, cleaning the nipple shield and the appropriate way to apply and use as a tool. Discussed with mom the nipple shield precautions, possible complications associated with the risks and benefits. Reviewed practicing with a nipple shield, then without and how to protect the milk supply and production. Mom and baby guide referred to as a resource for outpatient services, community resources and when to call a provider. Mom voiced understanding of the importance of hand expression, nipple stimulation and initiating a pumping schedule if continues to nurse with the shield. Nipple Shield Handout was also provided. Reported to the Primary RN. Original Note: 1230 RN was called down to labor to help mother latch baby, mother had baby on her left breast in cradle position, she had already done a few minutes but baby did not maintain latch. RN had mother put baby in cross cradle on the same breast and baby was able to maintain latch for about 5 mins. Reported to Nursery RN. 1410 Consulted with patient to assess needs related to . Baby has a disorganized suck and is having trouble latching, RN pulled a nipple shield and baby was able to latch, suck was disorganized at first but then baby improved. We reviewed working with the infant, supporting breast, protecting her nipples with an optimal deep latch, good positioning, and good hand washing. Encouraged understanding the benefits of skin to skin, responding to feeding cues, frequencies of feeding 8-12 times in 24 hours (approximately 2-3 hours), duration of feedings, milk production, intake/output feeding sheet and signs of adequate intake encouraging swallowing at the breast. Reviewed positioning and alignment, supporting breast, off-centered (asymmetrical latch) and leading with the chin with big, open, wide gape. latched optimally to the [left] breast in [football] position. Education given to the mother of how to visualize the suckling (with good rocking jaw motion) swallows (dropping of the lower jaw) and how to listen for drinking at the breast (the ka sound). The was [able] to maintain latch without discomfort to mother. Nipple care reviewed with optimal latch, good positioning and using clean hands when touching her breast. Resources used to facilitate learning were used from the [visual handouts/ tool/mom and baby guide]. Mother voiced understanding of the education shared, to call for assistance if the does not latch or if there is discomfort with . Reported to the Primary RN. 1700 Mother called out for assistance with latching, she had already latched baby to her left breast in cradle position with the nipple shield for 25 mins, RN advised mother to go ahead and latch baby on the right breast with the shield in cross cradle. Mother was able to latch and baby was able to maintain and suck looked organized. 1730 Mother requested to start using the breast pump now, RN had talked to her about using the nipple shield and how pumping may be initiated if shield use continued. When mother was done with , on her right nipple she has a small blister forming, lanolin applied. Instructions given on cleaning, care, usage, that there should be no pain, pumping schedule for milk production, collection, and storage of human milk. Patient was assessed for correct placement, flange size, to pump for comfort and nipple stretching/stimulation for adequate milk production every 3 hours (8 times in 24 hours) 1-2 times at night if mother continues to use the nipple shield. Parents are encouraged to record the pumping schedule on the feeding sheet.?Mother voiced understanding of the education shared along with mom/baby guide and the pump measurement, flange fit handout for additional resource information. Reported to the Primary RN.
[2024-04-20] MEDS: IBUPROFEN 600 MG TABLET PO (21:15)
[2024-04-21 01:20] VITALS: BP 110/70; PULSE 85; RESP 16; TEMP 36.9; O2SAT 95
[2024-04-21 05:07] LABS: Hematocrit 28.3 % (37.0-47.0); Hemoglobin 9.7 g/dL (12.0-15.0)
[2024-04-21] MEDS: LEVOTHYROXINE SODIUM 75 MCG TABLET PO (06:28)
[2024-04-21 07:25] VITALS: BP 118/79; PULSE 89; RESP 15; TEMP 36.8; O2SAT 99
[2024-04-21] MEDS: ACETAMINOPHEN 325 MG TABLET 650 MG PO ×2 (07:33→16:05)
--- NOTE | 2024-04-21 07:42 | P.PNOB_ITS ---
OB - PN: Subj Subjective Date/time seen: 04/21/24 07:42 Interval history: PPD#1 Doing well, pain worse with walking Tolerating general diet Voiding without issue Declines circ OB - PN: Obj Data Labs 04/21/24 05:02 Labs: Laboratory Results - last 24 hr 04/21/24 05:02 Hgb 9.7 L D Hct 28.3 L OB - PN A/P Plan day: 1 Plan: routine care Time Spent With Patient Time: Total time spent is greater than 50% in coordination of care (as documented) at patient's floor/unit and/or counseling patient: Review of Systems 2 Review of Systems: All systems reviewed & are unremarkable except as noted in HPI and below Exam 2 Const: General: comfortable and no acute distress O rientation/consciousness: patient oriented x3 Resp: Effort & Inspection: normal respiratory effort
--- NOTE | 2024-04-21 08:46 | PC.NURSE ---
On 04/21/24, the student, Farhan Delgadillo, provided care and completed [facility] documentation on this patient. I have reviewed the student's documentation and agree with the findings.
[2024-04-21] MEDS: MULTIVIT/MIN/PREN/FOL AC/IRON TABLET 1 TAB PO (10:02)
[2024-04-21] MEDS: DOCUSATE SODIUM 100 MG CAPSULE PO ×2 (10:02→16:05)
[2024-04-21] MEDS: POLYSACCHARIDE IRON COMPLEX 150 MG CAPSULE PO ×2 (10:02→16:05)
--- NOTE | 2024-04-21 13:13 | WPDANLDPN2 ---
Anes-Prog Note L&D Date/Time: 04/21/24 13:13 Comfortable throughout: labor and delivery Neuraxial method: epidural Epidural/Spinal procedure site: clean & non-tender Neuro status: Neuro function grossly intact. Cardiovascular status: normal Respiratory status: normal Airway patency: baseline Mental status: baseline Post-Op hydration status: normal Vital Signs: Last Vital Signs Temp 36.8 C 04/21/24 07:25 Pulse 89 04/21/24 07:25 Resp 15 04/21/24 07:25 BP 118/79 04/21/24 07:25 Pulse Ox 99 04/21/24 07:25 O2 Del Method Room Air 04/21/24 07:50 Pain score (VAS): 0 I/O: Intake & Output 04/20/24 04/21/24 04/21/24 23:59 07:59 15:59 Intake Total 500 Balance 500 Post-procedural complaints: none Patient feedback: Patient satisfied with anesthetic care.
[2024-04-21] MEDS: IBUPROFEN 600 MG TABLET PO (14:05)
--- NOTE | 2024-04-21 15:42 | PC.NURSE ---
Addendum entered by Keke Carnes RN 04/21/24 17:56: Note charted @ 1551 on 04/21/24 should have been entered at 1010. Original Note: Introductions were re-made, then consulted with patient to assess needs related to . Discussed with mother her?plans to feed?her infant and the?experience so far. Mother had been using a nipple shield since yesterday and used it on and off through the night, she had also began using a breast pump yesterday. RN assisted mother with latching baby to her left breast in the football position with the shield, she had tried for a few minutes without the shield and baby was unable to maintain his latch. Her right nipple blister has improved and she is using her lanolin, RN advised mother that if she had pain or rubbing while using the shield she may need to purchase the larger size, as the hospital only has the one size available. Mother had requested formula bottles to give the baby if she felt like he was still hungry after nursing. Education provided on the formula and also regarding her hypothyroidism. Resources provided for inpatient and outpatient services with the feeding sheet, mom/baby guide and name written on the communication board. Mother voiced understanding of information and will call if there is a request for assistance. Reported to the Primary RN.
--- NOTE | 2024-04-21 16:15 | PC.NURSE ---
1135 Mother called RN to room to assist with latch, baby attempted for a few mins on the left breast in football w/o the nipple shield and could not maintain his latch, nipple everted but soft. Nipple shield applied and baby latched optimally, RN encouraged mother to switch breasts after 15 mins and call out if she was not able to latch baby to her right breast. Nipple shield handout and admission packet provided to mother. Reviewed good handwashing, cleaning the nipple shield and the appropriate way to apply and use as a tool. Discussed with mom the nipple shield precautions, possible complications associated with the risks and benefits. Reviewed practicing with a nipple shield, then without and how to protect the milk supply and production. Mom and baby guide referred to as a resource for outpatient services, community resources and when to call a provider. Mom voiced understanding of the importance of hand expression, nipple stimulation and initiating a pumping schedule if infant continues to nurse with the shield. Reported to the Primary RN. 1220 RN returned to room, mother never called out. Per mother baby nursed on her left breast with the shield for 15 mins and she was holding baby skin to skin, she had not attempted to latch on the other breast. RN offered to assist her, baby was sleepy, attempted with and w/o the shield for 5 mins or so. RN reminded mother that this was the third time that she had used the nipple shield and she should start using the breast pump per hospital policy to protect her milk supply. Per mother she would like to eat her lunch and will then call out to start pumping. She does have her own breast pump at home but would like to use the hospital pump while here. 1350 RN took breast pump, kit, handouts and measuring tool into the room to start mother pumping, she still had not called out from finishing her lunch. She now states that she has family coming and wishes to start using the breast pump after her visitors leave. 1425 Primary RN in room, advised mother it was time to feed the baby. Visitors left while mother was going to feed. RN called to room to assist with latch. Baby attempted with very good effort to latch to mother's left breast in football position for a few mins, mother was leaking colostrum. Baby unable to maintain latch and nipple shield applied, baby then latched optimally. 1500 RN to room, mother called for assistance to help swaddle the baby. Per mom, baby nursed with the shield for 25 mins, her family is in the room now and she will pump after they leave.
[2024-04-21 19:44] VITALS: BP 118/66; PULSE 97; RESP 18; TEMP 36.7; O2SAT 98
[2024-04-22] MEDS: IBUPROFEN 600 MG TABLET PO ×2 (01:14→10:10)
[2024-04-22] MEDS: ACETAMINOPHEN 325 MG TABLET 650 MG PO ×2 (01:14→10:10)
[2024-04-22] MEDS: LEVOTHYROXINE SODIUM 75 MCG TABLET PO (06:54)
[2024-04-22 07:35] VITALS: BP 121/77; PULSE 86; RESP 16; TEMP 36.8; O2SAT 98
[2024-04-22 08:00] VITALS: PULSE 86; RESP 16; O2SAT 98
--- NOTE | 2024-04-22 08:26 | P.PNOB_ITS ---
OB - PN: Subj Subjective Date/time seen: 04/22/24 08:26 Interval history: PPD#1 Doing well, pain worse with walking Tolerating general diet Voiding without issue Declines circ Patient comments: no complaints, pain well controlled, incisional pain, tolerating diet and flatus present OB - PN: Obj Data Labs 04/21/24 05:02 OB - PN A/P Plan day: 1 Plan: routine care Comments: No problems, routine care Time Spent With Patient Time: Total time spent is greater than 50% in coordination of care (as documented) at patient's floor/unit and/or counseling patient: Exam 2 Const: General: comfortable, no acute distress and alert Resp: Effort & Inspection: normal respiratory effort Auscultation: no crackles, no rales and no rhonchi Cardio: Rate: regular rate Heart sounds: no click, no murmurs and no rubs GI: Inspection: non-distended GI Palp: No Tenderness to palpation present (GI) Auscultation: normal bowel sounds Other: Incision - CDI Extrem: General: normal to inspection, no pedal edema and no calf tenderness
--- NOTE | 2024-04-22 08:26 | P.DS_ITS ---
DS: Admitting Diagnosis Discharge Date March 22, 2024 Admitting Diagnosis term CC DS: Discharge Diagnosis Discharge Diagnosis (1) Term delivered: Code(s): O80 - Encounter for full-term uncomplicated delivery Status: Acute OB - DS: Summary OB Procedures : None OB Procedures Intrapartum: Spontaneous Vag Delivery OB Procedures: : None Peripartum Data Episiotomy description: None Time Spent with Patient Time attestation: Total time spent providing and/or coordinating discharge services: DS: Data Data Completed and Pending Pending studies at discharge: Pending at discharge 04/20/24 11:07 Surgical [PTH] Routine Discharge Plan Discharge Discharging Clinician: Pee Hayes Patient Disposition: Home, Self-Care Activity: pelvic rest Diet: regular Patient Instructions: Antibiotic Form Patient Language: Georgian Stand Alone Forms: General Discharge Information Follow-up/Referrals: Pee Hayes MD [Physician] - Discharge Medications: Continued aspirin 81 mg capsule 81 mg PO DAILY insulin glargine [Lantus U-100 Insulin] 100 unit/mL solution 7 unit subcut QPM PNV cmb#95-ferrous fumarate-FA [] 28 mg iron- 800 mcg tablet 1 tablet PO DAILY levothyroxine [Euthyrox] 75 mcg tablet 75 mcg PO DAILY Date of admission: 04/19/24 17:02 Primary Care Provider: UNKNOWN,DOCTOR Admitting Provider: Juma Rouse Attending physician on admission: Juma Rouse Condition: Stable
[2024-04-22] MEDS: POLYSACCHARIDE IRON COMPLEX 150 MG CAPSULE PO (10:12)
[2024-04-22] MEDS: MULTIVIT/MIN/PREN/FOL AC/IRON TABLET 1 TAB PO (10:12)
[2024-04-22] MEDS: DOCUSATE SODIUM 100 MG CAPSULE PO (10:12)
--- NOTE | 2024-04-22 10:39 | PC.NURSE ---
Patient viewed the discharge video Mother & Baby Care, The First Two Weeks . Patient was given the opportunity and encouraged to ask questions. Patient verbalized understanding of information shared and has been given the mother/baby guide for home reference.
--- NOTE | 2024-04-22 11:58 | PC.NURSE ---
Consulted with mother concerning needs and she shared her ability to independently latch infant optimally with nipple shield occasionally without pain. Mother is feeding appropriately for growth of and understands stimulating to eat if needed. Infant has had appropriate feedings in the last 24 hours meets the outcomes for weight, output, blood sugar and jaundice at this time. Reinforced understanding of milk production, transition of milk, signs of adequate intake, transition of stool, prevention/relief of engorgement, plugged ducts, mastitis, responsive watching for feeding cues, the different methods of stimulating infant to breastfeed 1-3 hours after the start of the last feeding, community resources, and when to call a provider using the resource of the feeding sheet along with the mom and baby guide. Mother will begin pumping at home with her breast pump. She will bring her breast pump from home to her follow up appointment if she has questions. Mother voiced understanding of the information shared, is confident to continue effectively her infant at home, when to call for assistance, denies any additional assistance or education at this time. Reported to the Primary RN.
== END 2024-04-22 12:25 | disposition home or self-care (01) | DRG 807 ==
LOC: ANHLDR 04-20 02:25 → ANHOB2 04-22 08:27 → ANHLDR 04-23 08:56 → ANHOB2 04-23 08:56
PROVIDERS: Admitting Provider Obstetrics & Gynecology; Visit Provider Obstetrics & Gynecology
DX: O24.429 Gestational diabetes mellitus in childbirth, unspecified control (principal); Z37.0 Single live birth; Z3A.39 39 weeks gestation of pregnancy; O99.824 Streptococcus B carrier state complicating childbirth; O69.81X0 Labor and delivery complicated by cord around neck, without compression, not applicable or unspecified; O70.1 Second degree perineal laceration during delivery; O69.89X0 Labor and delivery complicated by other cord complications, not applicable or unspecified; O35.19X0 Maternal care for (suspected) chromosomal abnormality in fetus, other chromosomal abnormality, not applicable or unspecified
CPT/HCPCS: 36415; 82948; 85014; 85018; 85025; 86592; 86703; 86850; 86900; 86901; 88307; A9270; G0432; J0290; J0690; J1815; J2405; J2590; J2795; J7120